=== PATIENT | male | born 1985 | race African-American/Black ===

== ENCOUNTER 2017-01-11 03:57 | Inpatient (IN) | payer SELFPAY ==
[~2017-01-11] VITALS: Ht 175.3 cm; Wt 67.6 kg
[2017-01-11] VITALS (12 sets, daily range): BP systolic 14–149; BP diastolic 52–93
[~2017-01-11 03:57] MED LIST: INSU100C SQ; INSU100I13 SQ; INSU100V13 SQ
[2017-01-11] MEDS ORDERED: ONDANSETRON PF 4 MG/2 ML VIAL. ONE (04:16)
[2017-01-11] MEDS ORDERED: 0.9 % SODIUM CHLORIDE 150ML 150 ML ONE (04:27)
[2017-01-11] MEDS ORDERED: INSULIN REGULAR 100 UNIT/ML 10ML VIAL. ONE (04:27)
[2017-01-11] MEDS ORDERED: ONDANSETRON PF 4 MG/2 ML VIAL. IV ONE (04:30)
[2017-01-11 04:44] LABS: BGAS PH 7.3 (7.35-7.46)
[2017-01-11 04:46] LABS: BASO # 0.1 x10^3/uL (0.0-0.2); BASO % 1 % (0-3); EOS % 0 % (0-3); HEMATOCRIT 51.6 % (39.0-53.0); HEMOGLOBIN 17.6 g/dL (13.0-17.5); LYMPH # 1.9 x10^3/uL (1.0-4.8); LYMPH % 10 % (24-48); MEAN CORPUSCULAR HEMOGLOBIN 32 pg (25-35); MEAN CORPUSCULAR HGB CONC 34 g/dL (31-37); MEAN CORPUSCULAR VOLUME 94 fL (79-100); MONO # 0.7 x10^3/uL (0.0-1.1); MONO % 4 % (0-9); NEUT # 15.9 x10^3uL (1.8-7.7); NEUT % 85 % (31-73); PLATELET COUNT 277 x10^3/uL (140-400); RED CELL DISTRIBUTION WIDTH 13.2 % (11.5-14.5); WHITE BLOOD COUNT 18.6 x10^3/uL (4.0-11.0)
--- NOTE | 2017-01-11 04:51 | PHYS DOC ---
Past History Past Medical History: Diabetes Past Surgical History: No Surgical History Smoking: Less than 1pk/day Alcohol Use: None Drug Use: None Adult General Chief Complaint Chief Complaint: BLOOD SUGAR PROBLEM HPI HPI 31-year-old male patient with history of type 1 diabetes brought in by his sister because of nausea and vomiting and high blood sugar. Patient state he didn't feel good yesterday and did not take his insulin after 2 PM and had more than 10 episodes of nonbloody vomiting with epigastric sharp pain without radiation. Patient complaining of pain in his throat during episodes of vomiting without fever and chills, diarrhea, urinary symptoms, sick contacts. Patient complaining of generalized weakness. Patient is a poor historian because of his medical condition and history is limited. Review of Systems Review of Systems Constitutional: Denies fever or chills [, reports generalized weakness] Eyes: Denies change in visual acuity, redness, or eye pain [] HENT: Denies nasal congestion, reports sore throat [] Respiratory: Denies cough or shortness of breath [] Cardiovascular: No additional information not addressed in HPI [] GI: Reports abdominal pain, nausea, vomiting, denies bloody stools or diarrhea [ ] : Denies dysuria or hematuria [] Musculoskeletal: Denies back pain or joint pain [] Integument: Denies rash or skin lesions [] Neurologic: Denies headache, focal weakness or sensory changes [] Endocrine: Denies polyuria or polydipsia [] All other systems were reviewed and found to be within normal limits, except as documented in this note. Current Medications Current Medications Current Medications Medications (Trade) Dose Ordered Sig/Jeanine Start Time Stop Time Status Last Admin Dose Admin Famotidine (Pepcid Vial) 20 mg 1X ONCE 01/11/17 05:00 01/11/17 05:01 01/11/17 04:31 20 MG Insulin Human Regular (NovoLIN R) 100 unit STK-MED ONCE 01/11/17 04:27 01/11/17 04:28 DC Insulin Human Regular 150 unit/ Sodium Chloride 151.5 ml @ 0 mls/hr 1X ONCE 01/11/17 05:00 01/11/17 05:01 01/11/17 04:50 6 MLS/HR Ondansetron HCl (Zofran) 4 mg 1X ONCE 01/11/17 04:30 01/11/17 04:45 DC 12/7/17 04:30 4 MG Sodium Chloride 150 ml @ As Directed STK-MED ONCE 01/11/17 04:27 01/11/17 04:28 DC Allergies Allergies Allergies Coded Allergies Type Severity Reaction Last Updated Verified No Known Drug Allergies 06/08/14 No Physical Exam Physical Exam Constitutional: Moderate distress, ill looking, non-toxic appearance. [] HENT: Normocephalic, atraumatic, bilateral external ears normal, oropharynx dry , no oral exudates, nose normal. [] Eyes: PERRLA, EOMI, conjunctiva normal, no discharge. [] Neck: Normal range of motion, no tenderness, supple, no stridor. [] Cardiovascular:tachycardia, no murmur [] Lungs & Thorax: Bilateral breath sounds clear to auscultation [] Abdomen: Bowel sounds normal, soft, no tenderness, no masses, no pulsatile masses. [] Skin: Warm, dry, no erythema, no rash. [] Back: No tenderness, no CVA tenderness. [] Extremities: No tenderness, no cyanosis, no clubbing, ROM intact, no edema. [] Neurologic: Alert and oriented X 3, normal motor function, normal sensory function, no focal deficits noted. [] Current Patient Data Vital Signs Vital Signs Date Time Temp Pulse Resp B/P (MAP) Pulse Ox O2 Delivery O2 Flow Rate FiO2 01/11/17 04:00 98.4 124 22 99 Room Air Lab Results Laboratory Tests Test 01/11/17 04:15 01/11/17 04:25 White Blood Count 18.6 x10^3/uL (4.0-11.0) H Red Blood Count 5.50 x10^6/uL (4.30-5.70) Hemoglobin 17.6 g/dL (13.0-17.5) H Hematocrit 51.6 % (39.0-53.0) Mean Corpuscular Volume 94 fL (79-100) Mean Corpuscular Hemoglobin 32 pg (25-35) Mean Corpuscular Hemoglobin Concent 34 g/dL (31-37) Red Cell Distribution Width 13.2 % (11.5-14.5) Platelet Count 277 x10^3/uL (140-400) Neutrophils (%) (Auto) 85 % (31-73) H Lymphocytes (%) (Auto) 10 % (24-48) L Monocytes (%) (Auto) 4 % (0-9) Eosinophils (%) (Auto) 0 % (0-3) Basophils (%) (Auto) 1 % (0-3) Neutrophils # (Auto) 15.9 x10^3uL (1.8-7.7) H Lymphocytes # (Auto) 1.9 x10^3/uL (1.0-4.8) Monocytes # (Auto) 0.7 x10^3/uL (0.0-1.1) Eosinophils # (Auto) 0.0 x10^3/uL (0.0-0.7) Basophils # (Auto) 0.1 x10^3/uL (0.0-0.2) Platelet Estimate Pending Blood pH 7.30 (7.35-7.46) L Blood Gas PCO2 23 mmHg (35-46) L Blood Gas PO2 120 mmHg (80-100) H Blood Gas HCO3 11 mmol/L (21-28) L Arterial Bld O2 Saturation (Calc) 98 % (92-99) FiO2 21 % EKG EKG [] Radiology/Procedures Radiology/Procedures [] Course & Med Decision Making Course & Med Decision Making Pertinent Labs reviewed. (See chart for details) Evaluation of patient in ER showed 31-year-old male patient with history of type 1 diabetes brought in because of nausea and vomiting and elevation of blood sugar. Patient had blood sugar of 475 at arrival to ER dry oral mucosa and tachycardia. ABG showed pH of 7.29 and bicarbonate of 11. 2 L of IV fluid was started in ER and patient had bolus of 10 units Insulin and blood sugar dropped to 370. Insulin drip at rate of 4 units /hour was started and patient rated to hospital to ICU with diagnosis of DKA. Dr. Sargent on-call hospitalist was consulted at 0445 and accepted the admission. Patient and his family informed about plan of care and agreed with hospitalization. [] Dragon Disclaimer Dragon Disclaimer This electronic medical record was generated, in whole or in part, using a voice recognition dictation system. Departure Departure: Impression: Primary Impression: DKA (diabetic ketoacidoses) Additional Impressions: Nausea and vomiting Tobacco abuse Uncontrolled diabetes mellitus Leukocytosis Renal insufficiency Disposition: 09 ADMITTED INPATIENT (At 0445) Admitting Physician: Rafael Sargent Condition: GUARDED Referrals: PCP,NO (PCP) Critical Care Time Critical care time was [60] minutes exclusive of procedures. Problem Qualifiers GOMEZ HOWARD MD Jan 11, 2017 04:51
[2017-01-11 04:57] LABS: ALBUMIN 3.8 g/dL (3.4-5.0); ALBUMIN/GLOBULIN RATIO 0.9 (1.0-1.7); CALCIUM 9.6 mg/dL (8.5-10.1); CREATININE 1.7 mg/dL (0.7-1.3); GFR 57.9; PHOSPHORUS 5.6 mg/dL (2.6-4.7); POTASSIUM 4.3 mmol/L (3.5-5.1); TOTAL BILIRUBIN 0.8 mg/dL (0.2-1.0)
[2017-01-11] MEDS ORDERED: IV NORMAL SALINE 1,000ML 1,000 ML IV ONE ×2 (05:00)
[2017-01-11] MEDS ORDERED: ONDANSETRON PF 4 MG/2 ML VIAL. IV PRN (05:00)
[2017-01-11] MEDS ORDERED: IV NORMAL SALINE 1,000ML 1,000 ML IV SCH (05:00)
[2017-01-11] MEDS ORDERED: FAMOTIDINE 20 MG/2 ML VIAL IVP ONE (05:00)
[2017-01-11] MEDS ORDERED: INSULIN REGULAR 150 UNIT in 0.9 % SODIUM CHLORIDE 150ML 150 ML IV ONE (05:00)
[2017-01-11] MEDS ORDERED: INSULIN REGULAR 150 UNIT in 0.9 % SODIUM CHLORIDE 150ML 150 ML IV PRN (05:00)
[2017-01-11] MEDS ORDERED: INSULIN REGULAR 100 UNIT/ML 10ML VIAL. IV ONE (05:00)
[2017-01-11 05:21] LABS: % BANDS 12 % (0-9); % BASOS 2 % (0-3); % EOS 1 % (0-5); % LYMPHS 11 % (24-48); % MONOS 6 % (0-10); % SEGS 68 % (35-66)
[2017-01-11 05:22] LABS: PLT ESTIMATE ADEQUATE (ADEQUATE)
[2017-01-11 05:23] LABS: TOXIC GRANULATION MOD; TOXIC VACUOLATION SLIGHT
[2017-01-11 06:42] LABS: BILIRUBIN,URINE NEG (NEG); CLARITY,URINE CLEAR; COLOR,URINE STRAW; GLUCOSE,URINE 500 mg/dL (NEG); NITRITE,URINE NEG (NEG); UROBILINOGEN,URINE 0.2 mg/dL (0.2 mg/dL)
[2017-01-11 06:45] LABS: BARBITURATES NEG (NEG); BENZODIAZEPINES NEG (NEG); CANNABINOIDS NEG (NEG); COCAINE POS (NEG); METHADONE NEG (NEG); OPIATES NEG (NEG); PHENCYCLIDINE NEG (NEG)
[2017-01-11 06:48] LABS: RBC,URINE OCC /HPF (0-2)
[2017-01-11 06:49] LABS: BACTERIA,URINE FEW /HPF (0-FEW); WBC,URINE OCC /HPF (0-4)
[2017-01-11 06:50] LABS: AMPHETAMINE/METHAMPHETAMINE NEG (NEG)
[2017-01-11] MEDS ORDERED: KETOROLAC 30 MG/ML VIAL. IV PRN (08:30)
[2017-01-11] MEDS ORDERED: ACETAMINOPHEN 325 MG TABLET PO PRN (08:30)
[2017-01-11] MEDS ORDERED: PROMETHAZINE 25 MG in IV NORMAL SALINE 50ML 50 ML IV PRN (09:00)
[2017-01-11] MEDS: IV NORMAL SALINE 1,000ML 1,000 ML IV SCH ×3 (10:12→12:30)
[2017-01-11] MEDS ORDERED: METOCLOPRAMIDE HCL 10 MG/2 ML VIAL. IV PRN (11:00)
[2017-01-11 11:34] LABS: INFLUENZA A PATIENT NEGATIVE (NEGATIVE); INFLUENZA B PATIENT NEGATIVE (NEGATIVE)
[2017-01-11] MEDS ORDERED: POTASSIUM CHLORIDE 10 MEQ IV ONE (12:06)
--- NOTE | 2017-01-11 12:20 | HP ---
ADMIT DATE: 01/11/2017 HISTORY OF PRESENT ILLNESS: The patient is a 31-year-old -[place] male patient with a past medical history of type 1 diabetes mellitus, was brought by his sister to the Emergency Room because of recurrent bouts of nausea and vomiting and high blood sugar. The patient stated that he did not feel good yesterday, did not take any of his insulin after 2 p.m. and had more than 10 episodes of nonbloody vomiting and epigastric sharp pain without radiation. He also complained of pain in his throat during these episodes of vomiting without fever or chills. Did complain of generalized weakness and was evaluated in the Emergency Room, was found to have leukocytosis with a white cell count 18,600. His chemistry showed that his anion gap was 29. His BUN was 21, creatinine 1.7. His blood sugar was high at 491 mg/dL and he was admitted with DKA, started on IV fluid and insulin drip, although initially, apparently the ER physician did not start him on drip and gave him only 10 units of insulin. PAST MEDICAL HISTORY: Significant for type 1 diabetes mellitus, on insulin. He is apparently on sliding scale insulin. PAST SURGICAL HISTORY: Unremarkable. ALLERGIES: He has no known drug allergies. FAMILY HISTORY: Unobtainable. The patient is very lethargic and difficult to get any information from him. SOCIAL HISTORY: He apparently lives with his sister. He does smoke. Claims that he does not drink alcohol. Stated that he does not use any drugs; however, his urine toxicology screen was positive for cocaine. He is single, but he claims that he has 4 children. REVIEW OF SYSTEMS: Unobtainable. PHYSICAL EXAMINATION: GENERAL: The patient is very sleepy when I examined him. On arrival to the ICU, he was pale, but not jaundiced, cyanosis, or thyromegaly. No jugular venous distension. No limb edema. VITAL SIGNS: His heart rate was 133, blood pressure was 126/76, temperature was 98.4, respiratory rate was 18 and oxygen saturation was 97% on room air. HEAD, EYES, EARS, NOSE, AND THROAT: Showed normocephalic, atraumatic. NECK: Supple. HEART: Showed normal first and second heart sounds. No gallop, rub or murmur. CHEST: Clear to auscultation. No crepitation or rhonchi. ABDOMEN: Slightly distended, soft, nontender. No guarding or rigidity. No organomegaly. Hernial orifice intact. Bowel sounds normal. NEUROLOGIC: He was sleepy but arousable. All his cranial nerves are intact. EXTREMITIES: He moves extremities without difficulty. LABORATORY DATA: On arrival showed a serum sodium 136, potassium 4.3, chloride 94, bicarbonate 13, anion gap of 29, BUN 21, creatinine 1.7, estimated GFR was 58 mL per minute. His glucose was 491, calcium was 9.6, phosphorus was 5.6, magnesium was 2. Total bilirubin, AST, ALT, alkaline phosphatase were normal. His total protein was 8, albumin was 3.8 and lipase was 74. His white cell count was 18,600, hemoglobin 17.6, hematocrit 51.6, MCV 94 and platelet count of 277,000 with a normal manual differential. His blood gases showed a pH of 7.30, pCO2 of 23, a pO2 of 120, bicarbonate was 11, and oxygen saturation was 98% on room air. His urinalysis showed the urine was clear with a pH of 5.5, specific gravity 1.020 was a trace of protein, large amount of glucose, large amount of ketones, small amount of blood, negative for nitrite and leukocyte esterase. There are no RBCs, no WBCs and very few bacteria. His urine toxicology screen was positive for cocaine and was negative for opiates, methadone, barbiturates, phencyclidine, amphetamine, methamphetamine, benzodiazepine, cannabinoids, methyl alcohol. Apparently has had a group A streptococcus, was negative but he did complain of sore throat. ASSESSMENT AND PLAN: In summary, this is a 31-year-old -[place] male patient known to have type 1 diabetes, insulin-dependent, here with diabetic ketoacidosis. We will continue with IV fluid, continue with the insulin drip. Continue with antiemetic and pain management. We will repeat his lab works including blood gases and BMP this afternoon and will decide the further management accordingly. If has no further episodes of nausea or vomiting, we can start him on a clear liquid diet. DEMETRIUS BAIN MD DR: JH/moses JOB#: [id number] / [id number]
[2017-01-11] MEDS: POTASSIUM CHLORIDE 40 MEQ in IV DEXTROSE 5 %-0.45 % NACL 1,000 ML IV SCH ×3 (12:33→19:41)
[2017-01-11 13:17] LABS: BGAS PH 7.3 (7.35-7.46)
[2017-01-11 13:23] LABS: ALBUMIN 2.9 g/dL (3.4-5.0); ALBUMIN/GLOBULIN RATIO 0.8 (1.0-1.7); CALCIUM 8.1 mg/dL (8.5-10.1); CREATININE 1.4 mg/dL (0.7-1.3); GFR 72.5; MAGNESIUM 1.8 mg/dL (1.8-2.4); POTASSIUM 4.3 mmol/L (3.5-5.1); TOTAL BILIRUBIN 0.5 mg/dL (0.2-1.0); TOTAL PROTEIN 6.5 g/dL (6.4-8.2)
--- NOTE | 2017-01-11 14:22 | RAD ---
AP chest, 01/11/2017: History: Leukocytosis The heart size and pulmonary vascularity are normal. The lungs are clear. There is no evidence of pleural fluid. IMPRESSION: No acute cardiopulmonary abnormality is detected.
[2017-01-11] MEDS ORDERED: INSU100V31 SQ (18:22)
[2017-01-11 21:13] LABS: CALCIUM 8.4 mg/dL (8.5-10.1); CREATININE 1.3 mg/dL (0.7-1.3); POTASSIUM 4.1 mmol/L (3.5-5.1)
[2017-01-12] VITALS (17 sets, daily range): BP systolic 109–168; BP diastolic 58–92
[2017-01-12] MEDS: POTASSIUM CHLORIDE 40 MEQ in IV DEXTROSE 5 %-0.45 % NACL 1,000 ML IV SCH ×3 (01:51→13:40)
[2017-01-12 06:36] LABS: HEMATOCRIT 41.6 % (39.0-53.0); HEMOGLOBIN 14.6 g/dL (13.0-17.5); RED BLOOD COUNT 4.55 x10^6/uL (4.30-5.70); RED CELL DISTRIBUTION WIDTH 13.1 % (11.5-14.5); WHITE BLOOD COUNT 14.5 x10^3/uL (4.0-11.0)
[2017-01-12 06:39] LABS: ALBUMIN 2.8 g/dL (3.4-5.0); ALBUMIN/GLOBULIN RATIO 0.8 (1.0-1.7); CALCIUM 8.7 mg/dL (8.5-10.1); CREATININE 1.1 mg/dL (0.7-1.3); GFR 95.8; POTASSIUM 4.1 mmol/L (3.5-5.1); TOTAL BILIRUBIN 0.5 mg/dL (0.2-1.0); TOTAL PROTEIN 6.5 g/dL (6.4-8.2)
[2017-01-12] MEDS ORDERED: DEXTROSE 50% 25 GM / 50ML DISP.SYRIN. IV PRN (10:00)
[2017-01-12] MEDS: INSULIN ASPART 300 UNITS/3 ML INSULN.PEN SQ SCH ×2 (11:30→14:30)
[2017-01-12] MEDS ORDERED: BENZOCAINE/MENTHOL LOZNGE 18'S BOX. PO PRN (16:00)
--- NOTE | 2017-01-12 23:42 | DS ---
DATE OF DISCHARGE: 01/12/2017 HISTORY OF PRESENT ILLNESS AND HOSPITAL COURSE: The patient is a 31-year-old male patient known to have type 1 diabetes, who came with complaining of a sore throat, recurrent bouts of nausea, vomiting and high blood sugar. He stated he has not felt good, not taken insulin, and had more than 10 episodes of nonbloody vomiting and epigastric sharp pain without radiation. Also, complained of pain in his throat during these episodes of vomiting without fever or chills. He did complain also generalized weakness and was evaluated in the Emergency Room, was found to have leukocytosis with a white cell count of 18,600. His chemistry showed a high anion gap, metabolic acidosis, BUN 21, creatinine 1.7. His blood sugar was 491 and was admitted with a diagnosis of diabetic ketoacidosis, started on IV fluid and insulin drip. He did very well. We did extensive investigation including his influenza A and B, and group A streptococcus rapid testing was negative. His nasal screen for MRSA PCR was negative. Urinalysis was unremarkable except for large amount of glucose and ketones. Toxic screen showed it was positive for cocaine. His chemistry showed that his lab work has dramatically improved. His creatinine came down from 1.7 to 1.1. His blood sugar is well controlled. A decision was made to discharge him home to continue on his home insulin regimen. FINAL DISCHARGE DIAGNOSES: 1. Type 1 diabetes mellitus. 2. Diabetic ketoacidosis. 3. Cocaine abuse. 4. Acute kidney injury, resolving. DEMETRIUS BAIN MD DR: JH/moses JOB#: [id number] / [id number]
--- NOTE | 2017-01-13 06:22 | PN ---
DATE: 01/12/2017 SUBJECTIVE: The patient is resting slightly propped up in bed, in no apparent distress, is definitely more awake, alert, has eaten his breakfast and lunch today, although continued to complain of sore throat. When I examined him, he looked well and was clearly in no apparent respiratory distress. No pallor, jaundice, cyanosis, or thyromegaly. No jugular venous distension. No lower limb edema. OBJECTIVE: VITAL SIGNS: His heart rate was 114, blood pressure was 114/69, temperature was 97.8, respiratory rate was 20, and oxygen saturation was 98%. HEAD, EYES, EARS, NOSE AND THROAT: Normocephalic, atraumatic. NECK: Supple. HEART: Showed normal first and second sounds. No gallop, rub or murmur. CHEST: Clear to auscultation. No crepitation or rhonchi. ABDOMEN: Distended, soft, nontender. No guarding or rigidity. No organomegaly. Hernial orifice intact. Bowel sounds normal. NEUROLOGIC: He was awake, alert, responding appropriately. Cranial nerves intact. He moves extremities without difficulty, ambulates without assistance or assistive devices. His intake was 4210, output was 1250. LABORATORY DATA: Showed a white cell count is down to 14,500, hemoglobin 14.6, hematocrit 41.6, MCV 92, and platelet count 208,000. His serum sodium was 139, potassium 4.1, chloride 107, bicarbonate 23, and anion gap of 9. BUN 9, creatinine 1.1. His glucose 153, calcium was 8.7. Total bilirubin, AST, ALT, alkaline phosphatase were normal. Total protein 6.5, albumin 2.8. His toxicology screen was positive for cocaine. His influenza A and B were negative. Rapid group A streptococcus test was negative. Nasal screen for MRSA by PCR was negative. ASSESSMENT: 1. Type 1 diabetes mellitus, insulin-dependent. 2. Diabetic ketoacidosis. 3. Intractable nausea and vomiting, improving. PLAN: To switch him to insulin sliding scale. Continue with IV fluid. He remained stable. He can be discharged home tomorrow. DEMETRIUS BAIN MD DR: JH/moses JOB#: [id number] / [id number]
== END 2017-01-12 18:45 | disposition home or self-care (01) | DRG 638 ==
LOC: ER 03:57 → ICU 04:45
PROVIDERS: ADMIT Internal Medicine; ATTEND Internal Medicine
DX: E10.10 Type 1 diabetes mellitus with ketoacidosis without coma (principal); N17.9 Acute kidney failure, unspecified; F17.210 Nicotine dependence, cigarettes, uncomplicated; D72.829 Elevated white blood cell count, unspecified; F14.10 Cocaine abuse, uncomplicated; Z79.4 Long term (current) use of insulin
CPT/HCPCS: 36415; 36600; 71010; 80048; 80053; 80307; 81001; 82010; 82550; 82803; 82947; 83690; 83735; 84100; 84484; 85007; 85025; 85027; 87070; 87641; 87804; 87880; 96365; 96375; J1815; J1885; J2405; J2550; J3480; S0028; 99291-25; G0479; J7030

== ENCOUNTER 2017-01-13 15:43 | Emergency (ER) | payer SELFPAY ==
[~2017-01-13] VITALS: Ht 327.7 cm; Wt 66.2 kg
[~2017-01-13 15:43] MED LIST changes: +INSU100V31 SQ
[2017-01-13 15:58] VITALS: BP 128/75
[2017-01-13 16:32] LABS: BASO # 0.1 x10^3/uL (0.0-0.2); BASO % 1 % (0-3); EOS % 0 % (0-3); HEMATOCRIT 45.9 % (39.0-53.0); HEMOGLOBIN 15.8 g/dL (13.0-17.5); LYMPH # 1.7 x10^3/uL (1.0-4.8); LYMPH % 18 % (24-48); MEAN CORPUSCULAR HEMOGLOBIN 32 pg (25-35); MEAN CORPUSCULAR HGB CONC 34 g/dL (31-37); MEAN CORPUSCULAR VOLUME 94 fL (79-100); MONO # 0.6 x10^3/uL (0.0-1.1); MONO % 6 % (0-9); NEUT # 6.8 x10^3uL (1.8-7.7); NEUT % 75 % (31-73); PLATELET COUNT 237 x10^3/uL (140-400); RED BLOOD COUNT 4.89 x10^6/uL (4.30-5.70); RED CELL DISTRIBUTION WIDTH 13.3 % (11.5-14.5); WHITE BLOOD COUNT 9.1 x10^3/uL (4.0-11.0)
[2017-01-13 16:36] LABS: ALBUMIN 3.4 g/dL (3.4-5.0); ALBUMIN/GLOBULIN RATIO 0.8 (1.0-1.7); CALCIUM 9.5 mg/dL (8.5-10.1); CREATININE 1.4 mg/dL (0.7-1.3); GFR 72.5; MAGNESIUM 1.9 mg/dL (1.8-2.4); POTASSIUM 4.9 mmol/L (3.5-5.1); TOTAL BILIRUBIN 0.8 mg/dL (0.2-1.0); TOTAL PROTEIN 7.7 g/dL (6.4-8.2)
--- NOTE | 2017-01-13 17:03 | EKG ---
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
--- NOTE | 2017-01-13 17:27 | PHYS DOC ---
Past History Past Medical History: Diabetes Past Surgical History: No Surgical History Smoking: Less than 1pk/day Alcohol Use: None Drug Use: Cocaine, Marijuana Adult General Chief Complaint Chief Complaint: NAUSEA/VOMITING/DIARRHEA HPI HPI Patient is a 31 year old M who presents with nausea, vomiting and diarrhea over the past 2 days. Aixa was admitted to the hospital and discharged 2 days ago for DKA. After he was discharged to [facility]. He did take his insulin prior. Thereafter he developed worsening nausea and vomiting. He is not taken his insulin since that time. He did not take his long-acting insulin last night and has not taken any short acting since his last meal. He has not checked his sugar during this time. He states that these symptoms feel similar to his previous DKA. Review of Systems Review of Systems Constitutional: Denies fever or chills [] Eyes: Denies change in visual acuity, redness, or eye pain [] HENT: Denies nasal congestion or sore throat [] Respiratory: Denies cough or shortness of breath [] Cardiovascular: No additional information not addressed in HPI [] GI: Negative except history of present illness : Denies dysuria or hematuria [] Musculoskeletal: Denies back pain or joint pain [] Integument: Denies rash or skin lesions [] Neurologic: Denies headache, focal weakness or sensory changes [] Endocrine: Denies polyuria or polydipsia [] All other systems were reviewed and found to be within normal limits, except as documented in this note. Family History Family History No pertinent family history reported Current Medications Current Medications Current medications were reviewed Current Medications Medications (Trade) Dose Ordered Sig/[facility] Start Time Stop Time Status Last Admin Dose Admin Insulin Human Regular (NovoLIN R) 10 unit 1X ONCE 01/13/17 17:30 01/13/17 17:31 Sodium Chloride 1,000 ml @ 1,000 mls/hr 1X ONCE 01/13/17 17:30 01/13/17 18:29 UNV Allergies Allergies No known allergies Allergies Coded Allergies Type Severity Reaction Last Updated Verified No Known Drug Allergies 06/08/14 No Physical Exam Physical Exam Constitutional: Well developed, well nourished, mild distress noted, ill appearing HENT: Normocephalic, atraumatic, bilateral external ears normal, no oral exudates, nose normal. [] Dry mucous membranes Eyes: PERRLA, EOMI, conjunctiva normal, no discharge. [] Neck: Normal range of motion, no tenderness, supple, no stridor. [] Cardiovascular:Heart rate regular rhythm, Lungs & Thorax: Bilateral breath sounds clear to auscultation [] Abdomen: Bowel sounds normal, soft, no masses, no pulsatile masses. [] Mild nonfocal tenderness to palpation Skin: Warm, dry, no erythema, no rash. [] Back: No tenderness, no CVA tenderness. [] Extremities: No tenderness, no cyanosis, no clubbing, ROM intact, no edema. [] Neurologic: Alert and oriented X 3, normal motor function, normal sensory function, no focal deficits noted. [] Psychologic: Affect normal, judgement normal, mood normal. [] Current Patient Data Vital Signs Vital Signs Date Time Temp Pulse Resp B/P (MAP) Pulse Ox O2 Delivery O2 Flow Rate FiO2 01/13/17 15:58 98.1 109 16 98 Room Air Lab Results Laboratory Tests Test 01/13/17 15:52 01/13/17 16:04 Glucose (Fingerstick) 314 mg/dL (70-99) H White Blood Count 9.1 x10^3/uL (4.0-11.0) Red Blood Count 4.89 x10^6/uL (4.30-5.70) Hemoglobin 15.8 g/dL (13.0-17.5) Hematocrit 45.9 % (39.0-53.0) Mean Corpuscular Volume 94 fL (79-100) Mean Corpuscular Hemoglobin 32 pg (25-35) Mean Corpuscular Hemoglobin Concent 34 g/dL (31-37) Red Cell Distribution Width 13.3 % (11.5-14.5) Platelet Count 237 x10^3/uL (140-400) Neutrophils (%) (Auto) 75 % (31-73) H Lymphocytes (%) (Auto) 18 % (24-48) L Monocytes (%) (Auto) 6 % (0-9) Eosinophils (%) (Auto) 0 % (0-3) Basophils (%) (Auto) 1 % (0-3) Neutrophils # (Auto) 6.8 x10^3uL (1.8-7.7) Lymphocytes # (Auto) 1.7 x10^3/uL (1.0-4.8) Monocytes # (Auto) 0.6 x10^3/uL (0.0-1.1) Eosinophils # (Auto) 0.0 x10^3/uL (0.0-0.7) Basophils # (Auto) 0.1 x10^3/uL (0.0-0.2) Sodium Level 135 mmol/L (136-145) L Potassium Level 4.9 mmol/L (3.5-5.1) Chloride Level 95 mmol/L (98-107) L Carbon Dioxide Level 15 mmol/L (21-32) L Anion Gap 25 (6-14) H Blood Urea Nitrogen 15 mg/dL (8-26) Creatinine 1.4 mg/dL (0.7-1.3) H Estimated GFR (Cockcroft-Gault) 72.5 BUN/Creatinine Ratio 11 (6-20) Glucose Level 335 mg/dL (70-99) H Calcium Level 9.5 mg/dL (8.5-10.1) Magnesium Level 1.9 mg/dL (1.8-2.4) Total Bilirubin 0.8 mg/dL (0.2-1.0) Aspartate Amino Transferase (AST) 12 U/L (15-37) L Alanine Aminotransferase (ALT) 17 U/L (16-63) Alkaline Phosphatase 84 U/L (46-116) Total Protein 7.7 g/dL (6.4-8.2) Albumin 3.4 g/dL (3.4-5.0) Albumin/Globulin Ratio 0.8 (1.0-1.7) L EKG EKG [] Radiology/Procedures Radiology/Procedures [] Course & Med Decision Making Course & Med Decision Making Pertinent Labs and Imaging studies reviewed. (See chart for details) Aixa was strongly advised to be admitted to the hospital for diabetic ketoacidosis. He was explained the risks associated with DKA include but are not limited to coma, , permanent disability and irreversible brain damage. He verbalized understanding and declined admission. He was accompanied by his girlfriend who also encouraged him to stay in the hospital. Multiple attempts were made attempting to encourage him to stay in the hospital. Dragon Disclaimer Dragon Disclaimer This electronic medical record was generated, in whole or in part, using a voice recognition dictation system. Departure Departure: Impression: Primary Impression: Diabetic ketoacidosis Disposition: 07 AGAINST MEDICAL ADVICE Condition: CRITICAL Referrals: PCP,NO (PCP) Problem Qualifiers Primary Impression: Diabetic ketoacidosis Diabetes mellitus type: other specified (including AMINAH) Diabetes mellitus complication detail: without coma Qualified Codes: E13.10 - Other specified diabetes mellitus with ketoacidosis without coma DORON MCLAUGHLIN MD Jan 13, 2017 17:27
[2017-01-13] MEDS ORDERED: IV NORMAL SALINE 1,000ML 1,000 ML IV ONE (17:30)
[2017-01-13] MEDS ORDERED: INSULIN REGULAR 100 UNIT/ML 10ML VIAL. IV ONE (17:30)
[2017-01-13] MEDS ORDERED: INSULIN REGULAR 150 UNIT in 0.9 % SODIUM CHLORIDE 150ML 150 ML IV ONE (17:30)
== END 2017-01-13 19:00 | disposition left against medical advice (07) ==
LOC: ER 15:43
DX: E11.10 Type 2 diabetes mellitus with ketoacidosis without coma (principal); Z79.4 Long term (current) use of insulin; F12.10 Cannabis abuse, uncomplicated; F14.10 Cocaine abuse, uncomplicated; F17.200 Nicotine dependence, unspecified, uncomplicated
CPT/HCPCS: 36415; 80053; 82947; 83735; 85025; 93005; 96360; 99285-25; J7030

== ENCOUNTER 2018-06-01 19:50 | Emergency (ER) | payer SELFPAY ==
[~2018-06-01] VITALS: Ht 175.3 cm; Wt 80.3 kg
--- NOTE | 2018-06-01 20:12 | ED.ADGEN ---
Past History Past Medical History: Diabetes Past Surgical History: No Surgical History Smoking: Cigarettes, Less than 1pk/day Alcohol Use: None Drug Use: Cocaine, Marijuana Adult General Chief Complaint Chief Complaint ".. I think I am in DKA again... my sugar at home was 529.. # .. I ve been Diabetic since age 17... ".. Now I vomiting.. and got abdomen pain..." Pt. " He gets bad about once a year.. and ends up admitted with DKA...." Mother HPI HPI Patient is a 32 year old male who presents with Nausea, Vomiting, Abd. Pain and Elevated Glucose. Pt. states he has not felt well for the past week. Sugars 120 to 500's no stability. No bad food, ill contacts, travel or change is his diabetic meds. No history immunosuppression. No history of IV drug use. Pt. did not get a flu vaccination this season. Patient does smoke tobacco. Patient normally follows with Dr. Jean Baptiste. Review of Systems Review of Systems Constitutional: Denies fever or chills [] Eyes: Denies change in visual acuity, redness, or eye pain [] HENT: Denies nasal congestion or sore throat [] Respiratory: Denies cough or shortness of breath [] Cardiovascular: No additional information not addressed in HPI [] GI: Complains of generalized abdominal pain, nausea, vomiting. No history, bloody stools or diarrhea [] : Denies dysuria or hematuria [] Musculoskeletal: Denies back pain or joint pain [] Integument: Denies rash or skin lesions [] Neurologic: Denies headache, focal weakness or sensory changes [] Endocrine: Has polyuria or polydipsia [] All other systems were reviewed and found to be within normal limits, except as documented in this note. Family History Family History Grandfather had diabetes Current Medications Current Medications Current Medications Medications (Trade) Dose Ordered Sig/Jeanine Start Time Stop Time Status Last Admin Dose Admin Famotidine (Pepcid Vial) 20 mg 1X ONCE 06/01/18 20:30 06/01/18 20:31 DC 06/01/18 20:37 20 MG Insulin Human Regular (HumuLIN R VIAL) 10 unit 1X ONCE 06/01/18 22:00 06/01/18 22:01 DC 06/01/18 22:05 10 UNIT Ketorolac Tromethamine (Toradol 15mg Vial) 15 mg 1X ONCE 06/01/18 20:30 06/01/18 20:31 DC 06/01/18 20:38 15 MG Lactated Ringer's 1,000 ml @ 1,000 mls/hr 1X ONCE 06/01/18 22:00 06/01/18 22:59 DC 06/01/18 22:03 1,000 MLS/HR Ondansetron HCl (Zofran) 8 mg 1X ONCE 06/01/18 20:30 06/01/18 20:31 DC 06/01/18 20:37 8 MG Sodium Chloride 1,000 ml @ 1,000 mls/hr Q1H 06/01/18 20:30 06/01/18 21:29 DC 06/01/18 20:38 1,000 MLS/HR Allergies Allergies Allergies Coded Allergies Type Severity Reaction Last Updated Verified No Known Drug Allergies 06/01/18 No Physical Exam Physical Exam Constitutional: in acute distress,ill in appearance. [] HENT: Normocephalic, atraumatic, bilateral external ears normal, oropharynx very dry, no oral exudates, nose normal. [] Eyes: PERRLA, EOMI, conjunctiva normal, no discharge. [] Neck: Normal range of motion, no tenderness, supple, no stridor. [] Cardiovascular: Tachycardia Heart rate regular rhythm, no murmur [] Lungs & Thorax: Bilateral breath sounds equal at apexes with basilar wheezes auscultation [] Abdomen: Bowel sounds decreased, soft, generalized abdomen tenderness, no masses, no pulsatile masses. [] Skin: Warm, dry, no erythema, no rash. Multiple tattoos Back: No tenderness, no CVA tenderness. [] Extremities: No tenderness, no cyanosis, no clubbing, ROM intact, no edema. [] Neurologic: Alert and oriented X 3, normal motor function, normal sensory function, no focal deficits noted. [] Psychologic: Affect anxious, judgement normal, mood depressed Current Patient Data Vital Signs Vital Signs Date Time Temp Pulse Resp B/P (MAP) Pulse Ox O2 Delivery O2 Flow Rate FiO2 06/01/18 23:00 97.9 110 20 114/70 (85) 100 Room Air Lab Results Laboratory Tests Test 06/01/18 20:10 06/01/18 20:12 06/01/18 20:45 06/01/18 21:30 White Blood Count 7.2 x10^3/uL (4.0-11.0) Red Blood Count 4.77 x10^6/uL (4.30-5.70) Hemoglobin 15.1 g/dL (13.0-17.5) Hematocrit 43.3 % (39.0-53.0) Mean Corpuscular Volume 91 fL (79-100) Mean Corpuscular Hemoglobin 32 pg (25-35) Mean Corpuscular Hemoglobin Concent 35 g/dL (31-37) Red Cell Distribution Width 13.5 % (11.5-14.5) Platelet Count 214 x10^3/uL (140-400) Neutrophils (%) (Auto) 55 % (31-73) Lymphocytes (%) (Auto) 32 % (24-48) Monocytes (%) (Auto) 7 % (0-9) Eosinophils (%) (Auto) 5 % (0-3) H Basophils (%) (Auto) 1 % (0-3) Neutrophils # (Auto) 4.0 x10^3uL (1.8-7.7) Lymphocytes # (Auto) 2.3 x10^3/uL (1.0-4.8) Monocytes # (Auto) 0.5 x10^3/uL (0.0-1.1) Eosinophils # (Auto) 0.3 x10^3/uL (0.0-0.7) Basophils # (Auto) 0.1 x10^3/uL (0.0-0.2) Prothrombin Time 9.7 SEC (9.4-11.4) Prothrombin Time INR 1.0 (0.9-1.1) PTT 22 SEC (23-33) L Sodium Level 134 mmol/L (136-145) L Potassium Level 3.7 mmol/L (3.5-5.1) Chloride Level 97 mmol/L (98-107) L Carbon Dioxide Level 27 mmol/L (21-32) Anion Gap 10 (6-14) Blood Urea Nitrogen 17 mg/dL (8-26) Creatinine 1.7 mg/dL (0.7-1.3) H Estimated GFR (Cockcroft-Gault) 57.5 Glucose Level 357 mg/dL (70-99) H Calcium Level 9.3 mg/dL (8.5-10.1) Magnesium Level 2.1 mg/dL (1.8-2.4) Total Bilirubin 0.5 mg/dL (0.2-1.0) Direct Bilirubin 0.1 mg/dL (0.0-0.2) Aspartate Amino Transferase (AST) 11 U/L (15-37) L Alanine Aminotransferase (ALT) 14 U/L (16-63) L Alkaline Phosphatase 75 U/L (46-116) Creatine Kinase 95 U/L (39-308) Troponin I Quantitative < 0.017 ng/mL (0-0.055) DS-Qur-K-Type Natriuretic Peptide 30 pg/mL (0-124) Total Protein 7.8 g/dL (6.4-8.2) Albumin 3.7 g/dL (3.4-5.0) Amylase Level 51 U/L (25-115) Lipase 47 U/L (73-393) L Urine Opiates Screen Neg (NEG) Urine Methadone Screen Neg (NEG) Urine Barbiturates Neg (NEG) Urine Phencyclidine Screen Neg (NEG) Urine Amphetamine/Methamphetamine Neg (NEG) Urine Benzodiazepines Screen Neg (NEG) Urine Cocaine Screen Pos (NEG) Urine Cannabinoids Screen Pos (NEG) Urine Ethyl Alcohol Neg (NEG) Glucose (Fingerstick) 371 mg/dL (70-99) H Blood pH 7.38 (7.35-7.46) Blood Gas PCO2 42 mmHg (35-46) Blood Gas PO2 88 mmHg (80-100) Blood Gas HCO3 25 mmol/L (21-28) Arterial Bld O2 Saturation (Calc) 96 % (92-99) FiO2 21 % Urine Collection Type Unknown Urine Color Yellow Urine Clarity Clear Urine pH 5.5 Urine Specific [place] 1.010 Urine Protein 100 mg/dl (NEG-TRACE) Urine Glucose (UA) >=1000 mg/dL (NEG) Urine Ketones (Stick) 40 mg/dL (NEG) Urine Blood Trace (NEG) Urine Nitrite Neg (NEG) Urine Bilirubin Neg (NEG) Urine Urobilinogen Dipstick 0.2 mg/dL (0.2 mg/dL) Urine Leukocyte Esterase Neg (NEG) Urine RBC Occ /HPF (0-2) Urine WBC 1-4 /HPF (0-4) Urine Squamous Epithelial Cells Occ /LPF Urine Bacteria 0 /HPF (0-FEW) Urine Hyaline Casts Occ /HPF Urine Mucus Slight /LPF Test 06/01/18 22:09 Glucose (Fingerstick) 234 mg/dL (70-99) H EKG EKG I interpretation of EKG shows a sinus tachycardia heart and 113 bpm. No findings of acute STEMI of contralateral changes[] Radiology/Procedures Radiology/Procedures My interpretation acute abdomen film shows no large cardio pulmonary infiltrate or acute findings. No free air under the diaphragm. Nonspecific bowel gas pattern.[] Course & Med Decision Making Course & Med Decision Making Pertinent Labs and Imaging studies reviewed. (See chart for details) At time discharge pt. symptoms had resolved and stated he felt much better. Continue insulin meds previous directed. Patient encouraged to maintain a re gular diet and medication schedule. Patient push fluids. Patient encouraged to stop smoking. Patient encouraged to stop illicit drugs of marijuana and cocaine. Patient to follow-up with primary care. Patient return if any concerns. [] Final Impression Final Impression 1. DM[]-hyperglycemia 2. Nausea and vomiting 3. Tobacco, marijuana, and cocaine use 4. Elevated creatinine 1.7 5. Volume contracted Dragon Disclaimer Dragon Disclaimer This electronic medical record was generated, in whole or in part, using a voice recognition dictation system. Discharge Summary Brief Hospital Course Allergies Allergies Coded Allergies Type Severity Reaction Last Updated Verified No Known Drug Allergies 06/01/18 No Vital Signs Vital Signs Date Time Temp Pulse Resp B/P (MAP) Pulse Ox O2 Delivery O2 Flow Rate FiO2 06/01/18 23:00 97.9 110 20 114/70 (85) 100 Room Air Lab Results Laboratory Tests Test 06/01/18 20:10 06/01/18 20:12 06/01/18 20:45 06/01/18 21:30 White Blood Count 7.2 x10^3/uL (4.0-11.0) Red Blood Count 4.77 x10^6/uL (4.30-5.70) Hemoglobin 15.1 g/dL (13.0-17.5) Hematocrit 43.3 % (39.0-53.0) Mean Corpuscular Volume 91 fL (79-100) Mean Corpuscular Hemoglobin 32 pg (25-35) Mean Corpuscular Hemoglobin Concent 35 g/dL (31-37) Red Cell Distribution Width 13.5 % (11.5-14.5) Platelet Count 214 x10^3/uL (140-400) Neutrophils (%) (Auto) 55 % (31-73) Lymphocytes (%) (Auto) 32 % (24-48) Monocytes (%) (Auto) 7 % (0-9) Eosinophils (%) (Auto) 5 % (0-3) Basophils (%) (Auto) 1 % (0-3) Neutrophils # (Auto) 4.0 x10^3uL (1.8-7.7) Lymphocytes # (Auto) 2.3 x10^3/uL (1.0-4.8) Monocytes # (Auto) 0.5 x10^3/uL (0.0-1.1) Eosinophils # (Auto) 0.3 x10^3/uL (0.0-0.7) Basophils # (Auto) 0.1 x10^3/uL (0.0-0.2) Prothrombin Time 9.7 SEC (9.4-11.4) Prothromb Time International Ratio 1.0 (0.9-1.1) Activated Partial Thromboplast Time 22 SEC (23-33) Sodium Level 134 mmol/L (136-145) Potassium Level 3.7 mmol/L (3.5-5.1) Chloride Level 97 mmol/L (98-107) Carbon Dioxide Level 27 mmol/L (21-32) Anion Gap 10 (6-14) Blood Urea Nitrogen 17 mg/dL (8-26) Creatinine 1.7 mg/dL (0.7-1.3) Estimated GFR (Cockcroft-Gault) 57.5 Glucose Level 357 mg/dL (70-99) Calcium Level 9.3 mg/dL (8.5-10.1) Magnesium Level 2.1 mg/dL (1.8-2.4) Total Bilirubin 0.5 mg/dL (0.2-1.0) Direct Bilirubin 0.1 mg/dL (0.0-0.2) Aspartate Amino Transf (AST/SGOT) 11 U/L (15-37) Alanine Aminotransferase (ALT/SGPT) 14 U/L (16-63) Alkaline Phosphatase 75 U/L (46-116) Creatine Kinase 95 U/L (39-308) Troponin I Quantitative < 0.017 ng/mL (0-0.055) HH-[id number]-Type Natriuretic Peptide 30 pg/mL (0-124) Total Protein 7.8 g/dL (6.4-8.2) Albumin 3.7 g/dL (3.4-5.0) Amylase Level 51 U/L (25-115) Lipase 47 U/L (73-393) Urine Opiates Screen Neg (NEG) Urine Methadone Screen Neg (NEG) Urine Barbiturates Neg (NEG) Urine Phencyclidine Screen Neg (NEG) Urine Amphetamine/Methamphetamine Neg (NEG) Urine Benzodiazepines Screen Neg (NEG) Urine Cocaine Screen Pos (NEG) Urine Cannabinoids Screen Pos (NEG) Urine Ethyl Alcohol Neg (NEG) Glucose (Fingerstick) 371 mg/dL (70-99) Blood Gas pH 7.38 (7.35-7.46) Blood Gas PCO2 42 mmHg (35-46) Blood Gas PO2 88 mmHg (80-100) Blood Gas HCO3 25 mmol/L (21-28) Arterial Bld O2 Saturation (Calc) 96 % (92-99) FiO2 21 % Urine Collection Type Unknown Urine Color Yellow Urine Clarity Clear Urine pH 5.5 Urine Specific [place] 1.010 Urine Protein 100 mg/dl (NEG-TRACE) Urine Glucose (UA) >=1000 mg/dL (NEG) Urine Ketones (Stick) 40 mg/dL (NEG) Urine Blood Trace (NEG) Urine Nitrite Neg (NEG) Urine Bilirubin Neg (NEG) Urine Urobilinogen Dipstick 0.2 mg/dL (0.2 mg/dL) Urine Leukocyte Esterase Neg (NEG) Urine RBC Occ /HPF (0-2) Urine WBC 1-4 /HPF (0-4) Urine Squamous Epithelial Cells Occ /LPF Urine Bacteria 0 /HPF (0-FEW) Urine Hyaline Casts Occ /HPF Urine Mucus Slight /LPF Test 06/01/18 22:09 Glucose (Fingerstick) 234 mg/dL (70-99) Brief Hospital Course Mr. Lundberg is a 32 old male who presented with Hyperglycemia, N/V and Dehydration Discharge Information Condition at Discharge: Improved, Stable Disposition/Orders: D/C to Home Dischare Medications Current Medications Sodium Chloride 1,000 ml @ 1,000 mls/hr Q1H IV Last administered on 06/01/18at 20:38; Admin Dose 1,000 MLS/HR; Start 06/01/18 at 20:30; Stop 06/01/18 at 21:29; Status DC Ondansetron HCl (Zofran) 8 mg 1X ONCE IV Last administered on 06/01/18at 20:37; Admin Dose 8 MG; Start 06/01/18 at 20:30; Stop 06/01/18 at 20:31; Status DC Famotidine (Pepcid Vial) 20 mg 1X ONCE IVP Last administered on 06/01/18at 20:37; Admin Dose 20 MG; Start 06/01/18 at 20:30; Stop 06/01/18 at 20:31; Status DC Insulin Human Regular (HumuLIN R VIAL) 10 unit 1X ONCE IV Last administered on 06/01/18at 20:37; Admin Dose 10 UNIT; Start 06/01/18 at 20:30; Stop 06/01/18 at 20:31; Status DC Ketorolac Tromethamine (Toradol 15mg Vial) 15 mg 1X ONCE IV Last administered on 06/01/18at 20:38; Admin Dose 15 MG; Start 06/01/18 at 20:30; Stop 06/01/18 at 20:31; Status DC Lactated Ringer's 1,000 ml @ 1,000 mls/hr 1X ONCE IV Last administered on 06/01/18at 22:03; Admin Dose 1,000 MLS/HR; Start 06/01/18 at 22:00; Stop 06/01/18 at 22:59; Status DC Insulin Human Regular (HumuLIN R VIAL) 10 unit 1X ONCE IV Last administered on 06/01/18at 22:05; Admin Dose 10 UNIT; Start 06/01/18 at 22:00; Stop 06/01/18 at 22:01; Status DC Active Scripts Active Zofran (Ondansetron Hcl) 8 Mg Tablet 8 Mg PO QIDPRN PRN Reported Novolog (Insulin Aspart) 100 Unit/1 Ml Vial 0 SQ QIDACHS Levemir (Insulin Detemir) 100 Unit/1 Ml Vial 15 Unit SQ HS Dragon Disclaimer This chart was dictated in whole or in part using Voice Recognition software in a busy, high-work load, and often noisy Emergency Department environment. It may contain unintended and wholly unrecognized errors or omissions. ANITA GUY MD Jun 01, 2018 20:12
[2018-06-01] MEDS ORDERED: KETOROLAC 15 MG/ML VIAL. IV ONE (20:30)
[2018-06-01] MEDS ORDERED: ONDANSETRON PF 4 MG/2 ML VIAL. IV ONE (20:30)
[2018-06-01] MEDS ORDERED: IV NORMAL SALINE 1,000ML 1,000 ML IV SCH (20:30)
[2018-06-01] MEDS ORDERED: FAMOTIDINE 20 MG/2 ML VIAL IVP ONE (20:30)
[2018-06-01] MEDS ORDERED: INSULIN REGULAR 100 UNIT/ML 3ML VIAL. IV ONE ×2 (20:30→22:00)
[2018-06-01 20:54] LABS: BASO # 0.1 x10^3/uL (0.0-0.2); BASO % 1 % (0-3); EOS # 0.3 x10^3/uL (0.0-0.7); EOS % 5 % (0-3); HEMATOCRIT 43.3 % (39.0-53.0); HEMOGLOBIN 15.1 g/dL (13.0-17.5); LYMPH # 2.3 x10^3/uL (1.0-4.8); LYMPH % 32 % (24-48); MEAN CORPUSCULAR HEMOGLOBIN 32 pg (25-35); MEAN CORPUSCULAR HGB CONC 35 g/dL (31-37); MEAN CORPUSCULAR VOLUME 91 fL (79-100); MONO # 0.5 x10^3/uL (0.0-1.1); MONO % 7 % (0-9); NEUT % 55 % (31-73); PLATELET COUNT 214 x10^3/uL (140-400); RED BLOOD COUNT 4.77 x10^6/uL (4.30-5.70); RED CELL DISTRIBUTION WIDTH 13.5 % (11.5-14.5); WHITE BLOOD COUNT 7.2 x10^3/uL (4.0-11.0)
[2018-06-01 20:55] LABS: BGAS PH 7.38 (7.35-7.46)
--- NOTE | 2018-06-01 21:06 | RAD ---
ACUTE ABDOMEN SERIES History: Nausea, vomiting, abdominal pain. Comparison: AP chest January 11, 2017 Findings: Single view of the chest, single upright view of the abdomen, 2 supine AP views of the abdomen are submitted. There is no infiltrate, pleural fluid, pneumothorax, free air. There is an overall nonobstructive bowel gas pattern. Impression: 1. No acute radiographic abnormality is identified. Electronically signed by: Eyal Jerry MD (06/01/2018 9:03 PM) [facility]
--- NOTE | 2018-06-01 21:13 | EKG ---
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 Electronically Signed On 06-05-2018 17:32:00 CDT by Papito Mcclain
[2018-06-01 21:14] LABS: ALBUMIN 3.7 g/dL (3.4-5.0); CALCIUM 9.3 mg/dL (8.5-10.1); CREATININE 1.7 mg/dL (0.7-1.3); DIRECT BILIRUBIN 0.1 mg/dL (0.0-0.2); GFR 57.5; MAGNESIUM 2.1 mg/dL (1.8-2.4); POTASSIUM 3.7 mmol/L (3.5-5.1); TOTAL BILIRUBIN 0.5 mg/dL (0.2-1.0); TOTAL PROTEIN 7.8 g/dL (6.4-8.2)
[2018-06-01 21:52] LABS: BARBITURATES NEG (NEG); BENZODIAZEPINES NEG (NEG); CANNABINOIDS POS (NEG); COCAINE POS (NEG); METHADONE NEG (NEG); OPIATES NEG (NEG); PHENCYCLIDINE NEG (NEG)
[2018-06-01 21:57] LABS: BACTERIA,URINE 0 /HPF (0-FEW); BILIRUBIN,URINE NEG (NEG); CLARITY,URINE CLEAR; COLOR,URINE YELLOW; GLUCOSE,URINE >=1000 mg/dL (NEG); HYALINE CASTS, URINE OCC /HPF; NITRITE,URINE NEG (NEG); RBC,URINE OCC /HPF (0-2); SQUAMOUS EPITHELIAL CELL,UR OCC /LPF; UROBILINOGEN,URINE 0.2 mg/dL (0.2 mg/dL)
[2018-06-01 22:00] LABS: AMPHETAMINE/METHAMPHETAMINE NEG (NEG)
[2018-06-01] MEDS ORDERED: IV RINGERS SOLUTION,LACTATED 1,000 ML IV ONE (22:00)
[2018-06-01] MEDS ORDERED: ONDA8TAB9 PO (22:19)
[2018-06-01 23:00] VITALS: BP 114/70
[2018-06-02 11:03] LABS: THYROID STIM HORMONE (TSH) 0.799 uIU/mL (0.358-3.740)
[2018-06-03 00:10] LABS: HEMOGLOBIN A1C 11.3 % (4.8-5.6)
== END 2018-06-01 23:11 | disposition home or self-care (01) ==
LOC: ER 19:50
DX: E11.65 Type 2 diabetes mellitus with hyperglycemia (principal); R11.2 Nausea with vomiting, unspecified; E86.9 Volume depletion, unspecified; R79.82 Elevated C-reactive protein (CRP); F17.210 Nicotine dependence, cigarettes, uncomplicated; F12.10 Cannabis abuse, uncomplicated; F14.10 Cocaine abuse, uncomplicated
CPT/HCPCS: 36415; 74022; 80048; 80061; 80076; 80307; 81001; 82150; 82550; 82803; 82947; 83036; 83690; 83735; 83880; 84443; 84484; 85025; 85610; 85730; 93005; 96361; 96374; 96375; 96376; 99285; J1815; J1885; J2405; J3490; J7120; J7030

== ENCOUNTER 2018-11-02 20:21 | Inpatient (IN) | payer SELFPAY ==
[~2018-11-02] VITALS: Ht 175.3 cm; Wt 72.8 kg
[~2018-11-02 20:21] MED LIST changes: +ONDA8TAB9 PO
[2018-11-02] MEDS ORDERED: ONDANSETRON PF 4 MG/2 ML VIAL. ONE (20:41)
[2018-11-02] MEDS ORDERED: IV NORMAL SALINE 500ML 500 ML IV ONE (21:00)
[2018-11-02] MEDS ORDERED: ONDANSETRON PF 4 MG/2 ML VIAL. IV ONE (21:00)
[2018-11-02] MEDS ORDERED: IV NORMAL SALINE 1,000ML 1,000 ML IV ONE (21:00)
--- NOTE | 2018-11-02 21:06 | EKG ---
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
[2018-11-02] MEDS ORDERED: INSU100I13 SQ (21:10)
--- NOTE | 2018-11-02 21:15 | RAD ---
Chest radiograph 11/02/2018 8:42 PM INDICATION: DKA, weakness COMPARISON: 01/11/2017 TECHNIQUE: Portable upright frontal view of the chest is provided. FINDINGS: The cardiomediastinal silhouette is within normal limits. There are no pleural effusions. There is no pulmonary vascular congestion. There is no pneumothorax. The lungs are clear. No significant osseous abnormality is identified. IMPRESSION: No acute cardiopulmonary process. Electronically signed by: Maribell Coburn MD (11/02/2018 9:11 PM) [facility]
[2018-11-02 21:17] LABS: BASO % 0 % (0-3); EOS % 0 % (0-3); HEMATOCRIT 45.9 % (39.0-53.0); HEMOGLOBIN 15.1 g/dL (13.0-17.5); LYMPH # 2.3 x10^3/uL (1.0-4.8); LYMPH % 18 % (24-48); MEAN CORPUSCULAR HEMOGLOBIN 32 pg (25-35); MEAN CORPUSCULAR HGB CONC 33 g/dL (31-37); MEAN CORPUSCULAR VOLUME 97 fL (79-100); MONO # 0.8 x10^3/uL (0.0-1.1); MONO % 6 % (0-9); NEUT # 9.7 x10^3uL (1.8-7.7); NEUT % 76 % (31-73); PLATELET COUNT 277 x10^3/uL (140-400); RED BLOOD COUNT 4.73 x10^6/uL (4.30-5.70); RED CELL DISTRIBUTION WIDTH 14.3 % (11.5-14.5); WHITE BLOOD COUNT 12.8 x10^3/uL (4.0-11.0)
[2018-11-02 21:29] LABS: ALBUMIN 4.1 g/dL (3.4-5.0); ALBUMIN/GLOBULIN RATIO 0.9 (1.0-1.7); CALCIUM 9.8 mg/dL (8.5-10.1); CREATININE 2.2 mg/dL (0.7-1.3); GFR 42.5; POTASSIUM 5.3 mmol/L (3.5-5.1); TOTAL BILIRUBIN 0.9 mg/dL (0.2-1.0); TOTAL PROTEIN 8.8 g/dL (6.4-8.2)
[2018-11-02] MEDS ORDERED: IV DEXTROSE 5 %-0.45 % NACL 1,000 ML IV SCH (22:01)
[2018-11-02] MEDS ORDERED: IV NORMAL SALINE 1,000ML 1,000 ML IV SCH ×2 (22:01)
[2018-11-02] MEDS ORDERED: INSULIN REGULAR VIAL 150 UNIT in 0.9 % SODIUM CHLORIDE 150ML 150 ML IV PRN (22:05)
[2018-11-02] MEDS ORDERED: ONDANSETRON PF 4 MG/2 ML VIAL. IV PRN (22:15)
[2018-11-02] MEDS ORDERED: POTASSIUM CHLORIDE 10MEQ 100 ML IV PRN ×5 (22:15)
[2018-11-02] MEDS ORDERED: MORPHINE SULFATE 4 MG/ML DISP.SYRIN. IV PRN (22:15)
[2018-11-02 22:29] LABS: BGAS PH 7.18 (7.35-7.46)
[2018-11-02] MEDS ORDERED: INSULIN REGULAR 100 UNIT/ML 3ML VIAL. IV ONE (22:30)
[2018-11-02 22:59] LABS: BACTERIA,URINE 0 /HPF (0-FEW); BILIRUBIN,URINE NEG (NEG); CLARITY,URINE CLEAR; COLOR,URINE STRAW; GLUCOSE,URINE 500 mg/dL (NEG); NITRITE,URINE NEG (NEG); SQUAMOUS EPITHELIAL CELL,UR OCC /LPF; UROBILINOGEN,URINE 0.2 mg/dL (0.2 mg/dL); WBC,URINE OCC /HPF (0-4)
--- NOTE | 2018-11-02 23:23 | PHYS DOC ---
Past History Past Medical History: Diabetes Past Surgical History: No Surgical History Smoking: Cigarettes, Less than 1pk/day Alcohol Use: Occasionally Drug Use: Cocaine, Marijuana Social History Narrative: states smoked marijuana last night; cocaine was a wk ago Adult General Chief Complaint Chief Complaint: NAUSEA/VOMITING/DIARRHEA HPI HPI Patient is a 33-year-old male with a history of diabetes presenting with 2 days of nausea vomiting and diarrhea apparently he stooled on himself a couple of times. He uses marijuana last night apparently he used cocaine last week denies alcohol describes upper abdominal pain and burning in nature worse before vomiting also did not take insulin today because he wasn't keeping anything down so he was worried about his blood sugar going down. Patient does not have insurance but he does take Lantus 20 a.m. 20 p.m. as well as NovoLog sliding scale Review of Systems Review of Systems Constitutional: Denies fever or chills [] Eyes: Denies change in visual acuity, redness, or eye pain [] HENT: Denies nasal congestion or sore throat [] Musculoskeletal: Denies back pain or joint pain [] Integument: Denies rash or skin lesions [] Neurologic: All other systems were reviewed and found to be within normal limits, except as documented in this note. Current Medications Current Medications Current Medications Medications (Trade) Dose Ordered Sig/Jeanine Start Time Stop Time Status Last Admin Dose Admin Dextrose/Sodium Chloride 1,000 ml @ 0 mls/hr Q0M 11/02/18 22:01 Fentanyl Citrate (Fentanyl 2ml Vial) 50 mcg 1X ONCE 11/02/18 21:00 11/02/18 21:01 DC 11/02/18 21:04 50 MCG Insulin Human Regular (HumuLIN R VIAL) 10 unit 1X ONCE 11/02/18 22:30 11/02/18 22:31 DC 11/02/18 22:31 10 UNIT Insulin Human Regular 150 unit/ Sodium Chloride 151.5 ml @ 0 mls/hr CONT PRN PRN 11/02/18 22:05 Morphine Sulfate (Morphine 4mg Syringe) 4 mg PRN Q2HR PRN 11/02/18 22:15 11/03/18 22:14 Ondansetron HCl (Zofran) 4 mg PRN Q4HRS PRN 11/02/18 22:15 11/03/18 22:14 Potassium Chloride 100 ml @ 100 mls/hr PRN Q1HR PRN 11/02/18 22:15 Sodium Chloride 1,000 ml @ 0 mls/hr Q0M 11/02/18 22:01 Allergies Allergies Allergies Coded Allergies Type Severity Reaction Last Updated Verified No Known Drug Allergies 11/02/18 No Physical Exam Physical Exam Constitutional: Well developed, well nourished, actively vomiting HENT: Normocephalic, atraumatic, bilateral external ears normal, oropharynx DRY, no oral exudates, nose normal. [] Eyes: PERRLA, EOMI, conjunctiva normal, no discharge. [] Neck: Normal range of motion, no tenderness, supple, no stridor. [] Cardiovascular: Tachycardia with no definite murmur Lungs & Thorax: Bilateral breath sounds clear to auscultation [] Abdomen: Bowel sounds normal, soft, n epigastric with negative Gutierrez's tenderness, no masses, no pulsatile masses. [] Skin: Warm, dry, no erythema, no rash. [] Back: No tenderness, no CVA tenderness. [] Extremities: No tenderness, no cyanosis, no clubbing, ROM intact, no edema. [] Neurologic: Alert and oriented X 3, normal motor function, normal sensory function, no focal deficits noted. [] Psychologic: Affect normal, judgement normal, mood normal. [] Current Patient Data Vital Signs Vital Signs Date Time Temp Pulse Resp B/P (MAP) Pulse Ox O2 Delivery O2 Flow Rate FiO2 11/02/18 20:31 98.2 122 24 95 Room Air 11/02/18 20:30 130/79 (96) Lab Results Laboratory Tests Test 11/02/18 20:36 11/02/18 20:50 11/02/18 22:24 11/02/18 22:26 Glucose (Fingerstick) 547 mg/dL (70-99) *H White Blood Count 12.8 x10^3/uL (4.0-11.0) H Red Blood Count 4.73 x10^6/uL (4.30-5.70) Hemoglobin 15.1 g/dL (13.0-17.5) Hematocrit 45.9 % (39.0-53.0) Mean Corpuscular Volume 97 fL (79-100) Mean Corpuscular Hemoglobin 32 pg (25-35) Mean Corpuscular Hemoglobin Concent 33 g/dL (31-37) Red Cell Distribution Width 14.3 % (11.5-14.5) Platelet Count 277 x10^3/uL (140-400) Neutrophils (%) (Auto) 76 % (31-73) H Lymphocytes (%) (Auto) 18 % (24-48) L Monocytes (%) (Auto) 6 % (0-9) Eosinophils (%) (Auto) 0 % (0-3) Basophils (%) (Auto) 0 % (0-3) Neutrophils # (Auto) 9.7 x10^3uL (1.8-7.7) H Lymphocytes # (Auto) 2.3 x10^3/uL (1.0-4.8) Monocytes # (Auto) 0.8 x10^3/uL (0.0-1.1) Eosinophils # (Auto) 0.0 x10^3/uL (0.0-0.7) Basophils # (Auto) 0.0 x10^3/uL (0.0-0.2) Sodium Level 131 mmol/L (136-145) L Potassium Level 5.3 mmol/L (3.5-5.1) H Chloride Level 89 mmol/L (98-107) L Carbon Dioxide Level 12 mmol/L (21-32) L Anion Gap 30 (6-14) H Blood Urea Nitrogen 35 mg/dL (8-26) H Creatinine 2.2 mg/dL (0.7-1.3) H Estimated GFR (Cockcroft-Gault) 42.5 BUN/Creatinine Ratio 16 (6-20) Glucose Level 582 mg/dL (70-99) *H Calcium Level 9.8 mg/dL (8.5-10.1) Total Bilirubin 0.9 mg/dL (0.2-1.0) Aspartate Amino Transferase (AST) 15 U/L (15-37) Alanine Aminotransferase (ALT) 22 U/L (16-63) Alkaline Phosphatase 98 U/L (46-116) Troponin I Quantitative < 0.017 ng/mL (0-0.055) Total Protein 8.8 g/dL (6.4-8.2) H Albumin 4.1 g/dL (3.4-5.0) Albumin/Globulin Ratio 0.9 (1.0-1.7) L Lipase 60 U/L (73-393) L Blood pH 7.18 (7.35-7.46) *L Blood Gas PCO2 30 mmHg (35-46) L Blood Gas PO2 100 mmHg (80-100) Blood Gas HCO3 11 mmol/L (21-28) L Arterial Bld O2 Saturation (Calc) 96 % (92-99) FiO2 21 % Urine Collection Type Unknown Urine Color Straw Urine Clarity Clear Urine pH 5.0 Urine Specific [place] 1.015 Urine Protein 30 mg/dl (NEG-TRACE) Urine Glucose (UA) 500 mg/dL (NEG) Urine Ketones (Stick) >=160 mg/dL (NEG) Urine Blood Small (NEG) Urine Nitrite Neg (NEG) Urine Bilirubin Neg (NEG) Urine Urobilinogen Dipstick 0.2 mg/dL (0.2 mg/dL) Urine Leukocyte Esterase Neg (NEG) Urine RBC 1-2 /HPF (0-2) Urine WBC Occ /HPF (0-4) Urine Squamous Epithelial Cells Occ /LPF Urine Bacteria 0 /HPF (0-FEW) EKG EKG []Sinus tachycardia rate of 121 QTc 449 no STEMI Radiology/Procedures Radiology/Procedures [] Impressions: TECHNIQUE: Portable upright frontal view of the chest is provided. FINDINGS: The cardiomediastinal silhouette is within normal limits. There are no pleural effusions. There is no pulmonary vascular congestion. There is no pneumothorax. The lungs are clear. No significant osseous abnormality is identified. IMPRESSION: No acute cardiopulmonary process. Electronically signed by: Georgina Small MD (11/02/2018 9:11 PM) [facility] [place] DICTATED AND SIGNED BY: GEORGINA SMALL MD DATE: 11/02/182110 CC: JIGAR CHIANG MD; PCP,NO ~ Course & Med Decision Making Course & Med Decision Making Pertinent Labs and Imaging studies reviewed. (See chart for details) []4 Critical care time was 45 minutes exclusive of procedures. Diabetic ketoacidosis insulin drip initiated orders were placed for Y protocol and spoke with Dr. Elsi STAPLES 40 5 PM plan to admit to the ICU for treatment. This point time patient has had some vomiting and diarrhea perhaps he has a viral syndrome ongoing addition he has had some drug use the last week or so perhaps those 2 things together a contributing to the DKA. Abdominal examination was fairly benign overall. Dragon Disclaimer Dragon Disclaimer This electronic medical record was generated, in whole or in part, using a voice recognition dictation system. Departure Departure: Impression: Primary Impression: Diabetic ketoacidosis Disposition: ADMITTED INPATIENT Admitting Physician: Rafael Sargent Condition: GUARDED Referrals: PCP,SOLEDAD (PCP) JIGAR CHIANG MD Nov 02, 2018 23:23
[2018-11-02] MEDS ORDERED: 0.9 % SODIUM CHLORIDE 150ML 150 ML ONE ×2 (23:34→23:45)
[2018-11-02 23:40] VITALS: BP 127/58
[2018-11-02] MEDS: IV NORMAL SALINE 1,000ML 1,000 ML IV SCH (23:45)
[2018-11-03] VITALS (22 sets, daily range): BP systolic 101–183; BP diastolic 45–92
[2018-11-03] MEDS ORDERED: INSU100C SQ (00:25)
[2018-11-03] MEDS ORDERED: IV NORMAL SALINE 1,000ML 1,000 ML IV ONE (01:00)
[2018-11-03] MEDS: METOCLOPRAMIDE HCL 10 MG/2 ML VIAL. IV PRN ×2 (01:00→17:24)
[2018-11-03] MEDS: IV NORMAL SALINE 1,000ML 1,000 ML IV SCH ×2 (01:57→07:45)
[2018-11-03] MEDS ORDERED: IV DEXTROSE 5 %-0.45 % NACL 1,000 ML IV ONE (02:45)
[2018-11-03 04:29] LABS: CALCIUM 8.6 mg/dL (8.5-10.1); CREATININE 1.9 mg/dL (0.7-1.3); GFR 50.3; POTASSIUM 4.4 mmol/L (3.5-5.1)
[2018-11-03] MEDS: POTASSIUM CL 20MEQ D5-0.45NACL 1,000 ML IV SCH ×3 (05:00→18:26)
[2018-11-03 08:16] LABS: ALBUMIN 3.2 g/dL (3.4-5.0); ALBUMIN/GLOBULIN RATIO 0.8 (1.0-1.7); CALCIUM 8.6 mg/dL (8.5-10.1); CREATININE 1.6 mg/dL (0.7-1.3); GFR 61.3; POTASSIUM 4.1 mmol/L (3.5-5.1); TOTAL BILIRUBIN 0.6 mg/dL (0.2-1.0)
[2018-11-03] MEDS ORDERED: FLU VAX QS 2019-20 (36MOS+)/PF 0.5 ML SYRINGE. VAX IM ONE (09:00)
[2018-11-03] MEDS ORDERED: DEXTROSE 50% 25 GM / 50ML DISP.SYRIN. IV PRN (11:15)
--- NOTE | 2018-11-03 11:43 | HP ---
ADMIT DATE: 11/02/2018 HISTORY OF PRESENT ILLNESS: The patient is a 33-year-old -[place] male patient who came to the Emergency Room complaining of recurrent bouts of nausea, vomiting and diarrhea. Apparently, he was incontinent a couple of times. He used marijuana the night before admission and also cocaine about a week ago. He denied any alcohol and describes upper abdominal pain with burning sensation worse before vomiting. Did not take any insulin. He was not able to keep anything down and was worried about his blood sugar going down. He does not have any insurance and he is normally on Lantus 20 units twice a day as well as NovoLog sliding scale. When he arrived to the Emergency Room, his blood sugar was 582. He was also acidotic with high anion gap, has dilutional hyponatremia, hyperkalemia and acute kidney injury. His pH was 7.18, pCO2 of 30 and bicarbonate 11 and was admitted with diabetic ketoacidosis, started on IV fluid as well as insulin drip and was admitted to ICU. He did receive at least 2 liters of normal saline before he arrived to the ICU. PAST MEDICAL HISTORY: Significant for type 1 diabetes, on insulin. PAST SURGICAL HISTORY: Unremarkable. ALLERGIES: No known drug allergies. FAMILY HISTORY: Noncontributory. SOCIAL HISTORY: Apparently lives with his sister. He does smoke. Claims that does not drink alcohol. He has used marijuana the night before admission and cocaine about a week ago. He is single, but stated that he has 4 children. REVIEW OF SYSTEMS: As per history of present illness. PHYSICAL EXAMINATION: GENERAL: On arrival to the Emergency Room, he was clearly tachypneic, but no pallor, jaundice, cyanosis, or thyromegaly. No jugular venous distension. No limb edema. VITAL SIGNS: His heart rate was 122, blood pressure was 130/79, temperature was 98.2, respiratory rate was 24, and oxygen saturation was 93% on room air. HEAD, EYES, EARS, NOSE AND THROAT: Showed normocephalic, atraumatic. NECK: Supple. HEART: Showed normal first and second heart sounds. No gallop or murmur. CHEST: Clear to auscultation. No crepitation or rhonchi. ABDOMEN: Distended, soft, nontender. No guarding or rigidity. No organomegaly. All hernial orifice intact. Bowel sounds normal. NEUROLOGIC: He was alert, oriented x 3 with no obvious lateralizing sign. LABORATORY DATA: While in the Emergency Room, his lab work done showed a white cell count 12,800, hemoglobin 15, hematocrit 45, MCV 97 and platelet count 277,000 with normal manual differential. His chemistry showed a serum sodium 131, potassium 5.3, chloride 89, bicarbonate 12, anion gap of 30, BUN 35, creatinine 2.2, estimated GFR was 42 mL per minute. His glucose was 582, calcium was 9.8. Total bilirubin, AST, ALT, alkaline phosphatase were normal. Total protein was 8.8, albumin was 4.1. Lipase was 60. His arterial blood gases showed a pH of 7.18, pCO2 of 30, pO2 of 100, bicarbonate 11 and oxygen saturation was 96% on FiO2 of 21%. His urinalysis showed the urine was straw colored, clear with a pH of 5, specific gravity of 1.015 with small amount of protein, large amount of glucose, large amount of ketones, small amount of blood, negative for nitrite, leukocyte esterase, 1-2 rbc's, occasional wbc's, and no bacteria. His chest x-ray showed that the cardiomediastinal silhouette is within normal limits. There are no pleural effusions. There is no pulmonary vascular congestion, no pneumothorax. The lungs are clear. No significant osseous abnormalities identified. ASSESSMENT AND PLAN: In summary, this is a 33-year-old -[place] male patient with type 1 diabetes mellitus who came again with recurrent bouts of nausea, vomiting in a background of marijuana abuse. He stated also used cocaine about a week to week and a half ago. He was diagnosed with diabetic ketoacidosis with severe metabolic acidosis and high anion gap, has also dilutional hyponatremia, hyperkalemia and acute kidney injury for which he was treated aggressively with rehydration as well as insulin drip. We will obviously follow the protocol and once he has had no further episodes of nausea or vomiting, we will start him on 1800 ADA diet, put him back on his insulin. DEMETRIUS BAIN MD DR: JH/moses JOB#: [id number] / [id number]
[2018-11-03] MEDS: INSULIN LISPRO 300 UNITS/3 ML VIAL. SQ SCH ×2 (12:00→17:22)
--- NOTE | 2018-11-03 12:16 | PN ---
DATE: 11/03/2018 SUBJECTIVE: The patient is resting, slightly propped up in bed, in no apparent distress, awake, alert. On questioning him, he denied any further episodes of nausea and vomiting. Denied any abdominal or chest pain. When I examined him, he looked well and was clearly in no apparent respiratory distress. No pallor, jaundice, cyanosis, or thyromegaly. No jugular venous distention. No lower limb edema. PHYSICAL EXAMINATION: VITAL SIGNS: His heart rate was 114, blood pressure was 150/78, temperature was 97.9, respiratory rate was 20, and oxygen saturation was 96%. HEAD, EYES, EARS, NOSE, AND THROAT: Normocephalic, atraumatic. NECK: Supple. HEART: Showed normal first and second heart sounds. No gallop or murmur. CHEST: Clear to auscultation. No crepitation or rhonchi. ABDOMEN: Scaphoid, soft, and nontender. NEUROLOGICAL: He is awake, alert, responding appropriately. All cranial nerves intact. He moves extremities without difficulty. His intake 4760, output was 800. LABORATORY DATA: As of this morning, his serum sodium 140, potassium 4.1, chloride 107, bicarbonate 24, anion gap of 9, BUN 23, creatinine 1.6, estimated GFR was 61 mL per minute. His glucose 132, calcium was 8.6. Total bilirubin, AST, ALT, alkaline phosphatase were normal. Total protein 7, albumin 3.2. IMPRESSION: Diabetic ketoacidosis, improving. His anion gap came down from 30 to 9. [id number] kidney injury. His creatinine came down from 2.2 to 1.6. PLAN: My plan is to resume his insulin. Continue with IV fluid. He is on 1800 ADA diet and once he is stable, hopefully tomorrow morning, can be discharged home. DEMETRIUS BAIN MD DR: JH/moses JOB#: [id number] / [id number]
[2018-11-03] MEDS ORDERED: INSULIN LISPRO 300 UNITS/3 ML VIAL. SQ ONE (15:00)
[2018-11-03] MEDS ORDERED: INSULIN GLARGINE SYRINGE. SQ ONE (21:00)
[2018-11-03] MEDS: INSULIN GLARGINE SYRINGE. SQ SCH (21:20)
[2018-11-04] VITALS (9 sets, daily range): BP systolic 131–182; BP diastolic 66–106
[2018-11-04 06:32] LABS: CALCIUM 8.6 mg/dL (8.5-10.1); CREATININE 1.2 mg/dL (0.7-1.3); GFR 85.4; POTASSIUM 3.7 mmol/L (3.5-5.1)
[2018-11-04] MEDS ORDERED: INSULIN GLARGINE SYRINGE. SQ ONE (09:00)
[2018-11-04] MEDS: INSULIN LISPRO 300 UNITS/3 ML VIAL. SQ SCH ×2 (09:12→11:48)
[2018-11-04] MEDS: INSULIN GLARGINE SYRINGE. SQ SCH (09:12)
--- NOTE | 2018-11-05 00:11 | DS ---
DATE OF DISCHARGE: 11/04/2018 HOSPITAL COURSE: The patient is a 33-year-old -[place] male patient who yet again came with another episode of diabetic ketoacidosis. His blood sugar was extremely high at 582 mg/dL. He has dilutional hyponatremia, hyperkalemia, and acute kidney injury. His creatinine was up to 2.2. He was treated aggressively with IV fluid and insulin drip and did very well. His anion gap has closed, it is down from 30-12. His BUN and creatinine has normalized. In fact, his creatinine was up to 2.2, this morning was 1.2. The patient himself is feeling very well, has no further episodes of nausea, vomiting. No abdominal pain. Tolerating his diet. In fact, his blood sugar was only 137 mg/dL, this is before lunch and the patient will be discharged home to continue on his current insulin regimen. PHYSICAL EXAMINATION: GENERAL: When I saw him this afternoon, he looked well and was clearly, in no apparent respiratory distress. No pallor, jaundice, cyanosis, or thyromegaly. No jugular venous distension. No limb edema. VITAL SIGNS: His heart rate was 107, blood pressure was 182/79, temperature was 98.7, respiratory rate was 10 and oxygen saturation was 96%. The rest of the clinical exam stable. LABORATORY DATA: His lab work this morning showed a serum sodium 135, potassium 3.7, chloride 101, bicarbonate 22, anion gap of 12, BUN 9, creatinine 1.2, estimated GFR was 85 mL, glucose was 256 and calcium was 8.6. His white cell count was 12,800, hemoglobin 15, hematocrit 45, MCV 97 and platelet count 257,000. DISCHARGE MEDICATIONS: The patient was discharged home to continue on his Lantus insulin at 20 units at bedtime and Humalog insulin as well as ____ before meals. FINAL DISCHARGE DIAGNOSES: 1. Type 1 diabetes mellitus. 2. Diabetic ketoacidosis. 3. Dilutional hyponatremia. 4. Acute kidney injury resolved. DEMETRIUS BAIN MD DR: JH/moses JOB#: [id number] / [id number]
== END 2018-11-04 14:40 | disposition home or self-care (01) | DRG 638 ==
LOC: ER 20:21 → ICU 23:07
PROVIDERS: ADMIT Internal Medicine; ATTEND Internal Medicine
DX: E10.10 Type 1 diabetes mellitus with ketoacidosis without coma (principal); E87.1 Hypo-osmolality and hyponatremia; N17.9 Acute kidney failure, unspecified; F12.10 Cannabis abuse, uncomplicated; Z79.4 Long term (current) use of insulin; E87.5 Hyperkalemia; F17.200 Nicotine dependence, unspecified, uncomplicated; E10.22 Type 1 diabetes mellitus with diabetic chronic kidney disease; N18.9 Chronic kidney disease, unspecified
CPT/HCPCS: 36415; 71045; 80048; 80053; 81001; 82803; 82947; 83690; 84484; 85025; 93005; 96361; 96374; 96375; 96376; 99406; J1815; J2405; J2765; J3010; J7040; 99291-25; J7030

== ENCOUNTER 2019-07-01 10:22 | Inpatient (IN) | payer SELFPAY ==
[~2019-07-01] VITALS: Ht 175.3 cm; Wt 84.6 kg
[2019-07-01] VITALS (10 sets, daily range): BP systolic 113–150; BP diastolic 62–85
[2019-07-01] MEDS ORDERED: ONDANSETRON PF 4 MG/2 ML VIAL. ONE (10:31)
[2019-07-01] MEDS ORDERED: INSULIN REGULAR 100 UNIT/ML 3ML VIAL. SQ ONE (11:00)
[2019-07-01] MEDS ORDERED: IOHEXOL 300 MG/ML 75 ML VIAL. IV ONE (11:15)
[2019-07-01] MEDS ORDERED: FAMOTIDINE 20 MG/2 ML VIAL IVP ONE (11:15)
[2019-07-01] MEDS ORDERED: IV NORMAL SALINE 1,000ML 1,000 ML IV ONE ×2 (11:15→12:15)
[2019-07-01 11:23] LABS: BASO # 0.1 x10^3/uL (0.0-0.2); BASO % 1 % (0-3); EOS % 0 % (0-3); HEMATOCRIT 45.4 % (39.0-53.0); HEMOGLOBIN 15.4 g/dL (13.0-17.5); LYMPH # 2.2 x10^3/uL (1.0-4.8); LYMPH % 14 % (24-48); MEAN CORPUSCULAR HEMOGLOBIN 32 pg (25-35); MEAN CORPUSCULAR HGB CONC 34 g/dL (31-37); MEAN CORPUSCULAR VOLUME 96 fL (79-100); MONO # 0.4 x10^3/uL (0.0-1.1); MONO % 3 % (0-9); NEUT # 12.5 x10^3uL (1.8-7.7); NEUT % 82 % (31-73); PLATELET COUNT 267 x10^3/uL (140-400); RED BLOOD COUNT 4.75 x10^6/uL (4.30-5.70); RED CELL DISTRIBUTION WIDTH 13.8 % (11.5-14.5); WHITE BLOOD COUNT 15.2 x10^3/uL (4.0-11.0)
[2019-07-01] MEDS ORDERED: diphenhydrAMINE 50 MG/ML VIAL IVP ONE (11:30)
[2019-07-01] MEDS ORDERED: METOCLOPRAMIDE HCL 10 MG/2 ML VIAL. IVP ONE (11:30)
[2019-07-01 11:39] LABS: BILIRUBIN,URINE NEG (NEG); CLARITY,URINE HAZY; COLOR,URINE YELLOW; GLUCOSE,URINE 500 mg/dL (NEG); NITRITE,URINE NEG (NEG); UROBILINOGEN,URINE 0.2 mg/dL (0.2 mg/dL)
[2019-07-01 11:40] LABS: BACTERIA,URINE 0 /HPF (0-FEW); SQUAMOUS EPITHELIAL CELL,UR OCC /LPF; WBC,URINE OCC /HPF (0-4)
[2019-07-01 11:44] LABS: BARBITURATES NEG (NEG); BENZODIAZEPINES NEG (NEG); CANNABINOIDS POS (NEG); COCAINE POS (NEG); METHADONE NEG (NEG); OPIATES NEG (NEG); PHENCYCLIDINE NEG (NEG)
[2019-07-01 11:46] LABS: ALBUMIN 3.7 g/dL (3.4-5.0); ALBUMIN/GLOBULIN RATIO 0.8 (1.0-1.7); CALCIUM 9.7 mg/dL (8.5-10.1); CREATININE 1.8 mg/dL (0.7-1.3); GFR 53.5; MAGNESIUM 2.3 mg/dL (1.8-2.4); TOTAL BILIRUBIN 0.8 mg/dL (0.2-1.0); TOTAL PROTEIN 8.2 g/dL (6.4-8.2)
[2019-07-01 11:47] LABS: AMPHETAMINE/METHAMPHETAMINE NEG (NEG)
[2019-07-01] MEDS ORDERED: IV NORMAL SALINE 1,000ML 1,000 ML IV SCH (12:15)
[2019-07-01] MEDS ORDERED: INSULIN REGULAR VIAL 100 UNIT in IV NORMAL SALINE 100ML 100 ML IV ONE (12:15)
[2019-07-01] MEDS ORDERED: INSULIN REGULAR VIAL 100 UNIT in IV NORMAL SALINE 100ML 100 ML IV PRN (12:15)
--- NOTE | 2019-07-01 12:21 | PHYS DOC ---
Past History Past Medical History: Diabetes Past Surgical History: No Surgical History Smoking: Cigarettes, Less than 1pk/day Additional Smoking Information: 1/4 pack Alcohol Use: None Drug Use: Cocaine, Marijuana General Adult EDM: Chief Complaint: HYPERGLYCEMIA HPI: HPI: 33-year-old male with past medical history of diabetes mellitus presents with report of nausea and vomiting with associated epigastric pain x2 days. Reports he is also had some diarrhea. Patient reports he cannot keep anything down. Denies known sick contacts. Patient does report he has not taken his insulin today. Patient reports he also used cocaine 2 days ago. Denies fever. Denies travel outside [place]. Denies known exposure to COVID-19. Review of Systems: Review of Systems: Constitutional: Denies fever or chills Eyes: Denies redness or eye pain HENT: Denies nasal congestion or sore throat Respiratory: Denies cough; reports shortness of breath Cardiovascular: Denies chest pain or palpitations GI: Reports upper abdominal pain, nausea, vomiting, and diarrhea : Denies dysuria or hematuria Musculoskeletal: Denies back pain or joint pain Integument: Denies rash or skin lesions Neurologic: Denies headache, focal weakness or sensory changes Complete systems were reviewed and found to be within normal limits, except as documented in this note. Current Medications: Current Meds: Current Medications Medications (Trade) Dose Ordered Sig/Jeanine Start Time Stop Time Status Last Admin Dose Admin Diphenhydramine HCl (Benadryl) 25 mg 1X ONCE 07/01/19 11:30 07/01/19 11:31 DC 07/01/19 11:33 25 MG Famotidine (Pepcid Vial) 20 mg 1X ONCE 07/01/19 11:15 07/01/19 11:16 DC 07/01/19 11:10 20 MG Insulin Human Regular (HumuLIN R VIAL) 9 unit 1X ONCE 07/01/19 11:00 07/01/19 11:03 DC 07/01/19 11:14 9 UNIT Insulin Human Regular 100 unit/ Sodium Chloride 101 ml @ 0 mls/hr CONT PRN PRN 07/01/19 12:15 UNV Iohexol (Omnipaque 300 Mg/ml) 75 ml 1X ONCE 07/01/19 11:15 07/01/19 11:16 DC 07/01/19 12:00 75 ML Metoclopramide HCl (Reglan Vial) 10 mg 1X ONCE 07/01/19 11:30 07/01/19 11:31 DC 07/01/19 11:34 10 MG Ondansetron HCl (Zofran) 4 mg PRN Q4HRS PRN 07/01/19 12:15 07/02/19 12:14 UNV Sodium Chloride 1,000 ml @ 0 mls/hr Q0M 07/01/19 12:09 UNV Allergies: Allergies: Allergies Coded Allergies Type Severity Reaction Last Updated Verified No Known Drug Allergies 11/02/18 No Physical Exam: PE: Constitutional: Well developed, well nourished, uncomfortable, non-toxic appearance HENT: Normocephalic, atraumatic, oropharynx dry Eyes: Conjunctiva normal, no discharge Neck: Normal range of motion, no tenderness, supple Cardiovascular: Heart rate tachycardic, regular rhythm Lungs & Thorax: Bilateral breath sounds clear to auscultation, no wheezing, tachypnea Abdomen: Soft, upper abdominal tenderness, no distention, negative McBurney's point Skin: Warm, dry, no erythema, no rash Extremities: No tenderness, ROM intact, no edema Neurologic: Alert and oriented X 3, normal motor function, normal sensory function, no focal deficits noted Psychologic: Affect anxious, judgment normal Current Patient Data: Labs: Laboratory Tests Test 07/01/19 10:34 07/01/19 11:00 07/01/19 11:06 Glucose (Fingerstick) 523 mg/dL (70-99) *H Urine Collection Type Unknown Urine Color Yellow Urine Clarity Hazy Urine pH 5.5 Urine Specific Moro 1.015 Urine Protein 100 mg/dl (NEG-TRACE) Urine Glucose (UA) 500 mg/dL (NEG) Urine Ketones (Stick) >=160 mg/dL (NEG) Urine Blood Small (NEG) Urine Nitrite Neg (NEG) Urine Bilirubin Neg (NEG) Urine Urobilinogen Dipstick 0.2 mg/dL (0.2 mg/dL) Urine Leukocyte Esterase Neg (NEG) Urine RBC 3-5 /HPF (0-2) Urine WBC Occ /HPF (0-4) Urine Squamous Epithelial Cells Occ /LPF Urine Bacteria 0 /HPF (0-FEW) Urine Opiates Screen Neg (NEG) Urine Methadone Screen Neg (NEG) Urine Barbiturates Neg (NEG) Urine Phencyclidine Screen Neg (NEG) Urine Amphetamine/Methamphetamine Neg (NEG) Urine Benzodiazepines Screen Neg (NEG) Urine Cocaine Screen Pos (NEG) Urine Cannabinoids Screen Pos (NEG) Urine Ethyl Alcohol Neg (NEG) White Blood Count 15.2 x10^3/uL (4.0-11.0) H Red Blood Count 4.75 x10^6/uL (4.30-5.70) Hemoglobin 15.4 g/dL (13.0-17.5) Hematocrit 45.4 % (39.0-53.0) Mean Corpuscular Volume 96 fL (79-100) Mean Corpuscular Hemoglobin 32 pg (25-35) Mean Corpuscular Hemoglobin Concent 34 g/dL (31-37) Red Cell Distribution Width 13.8 % (11.5-14.5) Platelet Count 267 x10^3/uL (140-400) Neutrophils (%) (Auto) 82 % (31-73) H Lymphocytes (%) (Auto) 14 % (24-48) L Monocytes (%) (Auto) 3 % (0-9) Eosinophils (%) (Auto) 0 % (0-3) Basophils (%) (Auto) 1 % (0-3) Neutrophils # (Auto) 12.5 x10^3uL (1.8-7.7) H Lymphocytes # (Auto) 2.2 x10^3/uL (1.0-4.8) Monocytes # (Auto) 0.4 x10^3/uL (0.0-1.1) Eosinophils # (Auto) 0.0 x10^3/uL (0.0-0.7) Basophils # (Auto) 0.1 x10^3/uL (0.0-0.2) Platelet Estimate Pending Prothrombin Time 9.9 SEC (9.4-11.4) Prothrombin Time INR 1.0 (0.9-1.1) Activated Partial Thromboplast Time 21 SEC (23-33) L Sodium Level 132 mmol/L (136-145) L Potassium Level 5.0 mmol/L (3.5-5.1) Chloride Level 91 mmol/L (98-107) L Carbon Dioxide Level 10 mmol/L (21-32) *L Anion Gap 31 (6-14) H Blood Urea Nitrogen 30 mg/dL (8-26) H Creatinine 1.8 mg/dL (0.7-1.3) H Estimated GFR (Cockcroft-Gault) 53.5 BUN/Creatinine Ratio 17 (6-20) Glucose Level 543 mg/dL (70-99) *H Lactic Acid Level 3.5 mmol/L (0.4-2.0) H Calcium Level 9.7 mg/dL (8.5-10.1) Magnesium Level 2.3 mg/dL (1.8-2.4) Total Bilirubin 0.8 mg/dL (0.2-1.0) Aspartate Amino Transferase (AST) 18 U/L (15-37) Alanine Aminotransferase (ALT) 23 U/L (16-63) Alkaline Phosphatase 91 U/L (46-116) Creatine Kinase 537 U/L (39-308) H Creatine Kinase MB (Mass) 2.0 ng/mL (0.0-3.6) Creatine Kinase MB Relative Index 0.4 % (0-4) Troponin I Quantitative < 0.017 ng/mL (0-0.055) Total Protein 8.2 g/dL (6.4-8.2) Albumin 3.7 g/dL (3.4-5.0) Albumin/Globulin Ratio 0.8 (1.0-1.7) L Lipase 58 U/L (73-393) L Acetone Level Sm pos (NEG) Vital Signs: Vital Signs Date Time Temp Pulse Resp B/P (MAP) Pulse Ox O2 Delivery O2 Flow Rate FiO2 07/01/19 11:54 122 24 155/75 (101) 99 Room Air 07/01/19 10:35 97.5 EKG: EKG: @1107 Sinus tachycardia at 112bpm, QRS 96ms, QT/QTc 334/458ms Radiology/Procedures: Radiology/Procedures: PROCEDURE: CT ABD PELV W/ IV CONTRST ONLY CT abdomen and pelvis with contrast History: Abdominal pain, nausea and vomiting Technique: After the administration of intravenous contrast, CT imaging was performed of the abdomen and pelvis. No oral contrast was given as per request. Multiplanar images are reviewed. Exposure: One or more of the following individualized dose reduction techniques were utilized for this examination: 1. Automated exposure control 2. Adjustment of the mA and/or kV according to patient size 3. Use of iterative reconstruction technique. Comparison: None Findings: There is some motion degradation. There is no significant abnormality of the visualized lung bases. There is no significant focal abnormality of the liver, spleen, pancreas, adrenal glands. There is probable hepatic steatosis. Both kidneys enhance without hydronephrosis. There is a hypodense lesion of the inferior left kidney about 0.9 cm in size, density measurements greater than a simple cyst at about 26 Hounsfield units. Gallbladder is present without obvious intraluminal abnormality by CT. Accurate evaluation of bowel is limited without oral contrast. There is no significant inflammatory change adjacent to the bowel. There is no evidence of bowel obstruction, free fluid, or free air. Appendiceal caliber is somewhat prominent on the order of 7 mm although the appendix is mostly filled with gas and not associated with significant wall thickening or adjacent inflammatory change. Urinary bladder is distended. Difficult to accurately characterize due to lack of oral contrast, there is probable at least mild long segment colonic wall thickening variably involving the ascending through the descending colon, no significant adjacent inflammatory-type change of the fat. There is some linear hyperdensity of the penis which may be calcification as there is no contrast in the urinary bladder during exam. Impression: 1. While appendix caliber is somewhat prominent, there are no other findings suggestive of acute appendicitis. While suboptimal evaluation without oral contrast, there is likely long segment colonic wall thickening as may be seen with colitis in the appropriate clinical setting. 2. There is distention of the urinary bladder. 3. There is probable hepatic steatosis. 4. There is a hypodense lesion of the inferior left kidney indeterminate for simple cyst although possibly somewhat complex cyst, could be further characterized with nonemergent ultrasound as per clinical indication. Electronically signed by: Eyal Jerry MD (07/01/2019 12:22 PM) [id number] Course & Med Decision Making: Course & Med Decision Making Pertinent Labs and Imaging studies reviewed. (See chart for details) Patient with past medical history of diabetes mellitus who is insulin-dependent presents with intractable nausea and vomiting with associated abdominal pain. Patient hyperventilating. Concern for DKA. IV fluid hydration provided. Sym ptomatic treatment provided. Accu-Chek greater than 500. Insulin bolus given subcutaneously. Labs obtained and posted to chart. Labs consistent for acute diabetic ketoacidosis. Acute renal insufficiency noted. Insulin drip initiated. CT abdomen/pelvis without acute finding. Some discussion regarding size of appendix however patient with no focal tenderness to right lower qu adrant. Abdominal pain more likely secondary to patient's DKA status. Patient requiring admission for further evaluation and treatment. Discussed with Dr. Sargent (hospitalist) who is in agreement with admission. Discussed findings and plan with patient, who acknowledges understanding and agreement. Dragon Disclaimer: Dragon Disclaimer: This electronic medical record was generated, in whole or in part, using a voice recognition dictation system. Departure Departure: Impression: Primary Impression: Diabetic ketoacidosis Qualified Codes: E13.10 - Other specified diabetes mellitus with ketoacidosis without coma Additional Impressions: Ekmne-de-kifsipj kidney injury Qualified Codes: N17.9 - Acute kidney failure, unspecified; N18.9 - Chronic kidney disease, unspecified Cocaine abuse Disposition: ADMITTED INPATIENT (ICU) Admitting Physician: Rafael Sargent Condition: GUARDED Referrals: [facility] (PCP) Critical Care Time Critical care time was 30 minutes which includes time at bedside, spent in discussion of patient's care with specialists and/or family members, with interpretation of laboratory and/or radiological studies and is exclusive of procedures. YANETH MONZON DO July 01, 2019 12:21
--- NOTE | 2019-07-01 12:24 | RAD ---
CT abdomen and pelvis with contrast History: Abdominal pain, nausea and vomiting Technique: After the administration of intravenous contrast, CT imaging was performed of the abdomen and pelvis. No oral contrast was given as per request. Multiplanar images are reviewed. Exposure: One or more of the following individualized dose reduction techniques were utilized for this examination: 1. Automated exposure control 2. Adjustment of the mA and/or kV according to patient size 3. Use of iterative reconstruction technique. Comparison: None Findings: There is some motion degradation. There is no significant abnormality of the visualized lung bases. There is no significant focal abnormality of the liver, spleen, pancreas, adrenal glands. There is probable hepatic steatosis. Both kidneys enhance without hydronephrosis. There is a hypodense lesion of the inferior left kidney about 0.9 cm in size, density measurements greater than a simple cyst at about 26 Hounsfield units. Gallbladder is present without obvious intraluminal abnormality by CT. Accurate evaluation of bowel is limited without oral contrast. There is no significant inflammatory change adjacent to the bowel. There is no evidence of bowel obstruction, free fluid, or free air. Appendiceal caliber is somewhat prominent on the order of 7 mm although the appendix is mostly filled with gas and not associated with significant wall thickening or adjacent inflammatory change. Urinary bladder is distended. Difficult to accurately characterize due to lack of oral contrast, there is probable at least mild long segment colonic wall thickening variably involving the ascending through the descending colon, no significant adjacent inflammatory-type change of the fat. There is some linear hyperdensity of the penis which may be calcification as there is no contrast in the urinary bladder during exam. Impression: 1. While appendix caliber is somewhat prominent, there are no other findings suggestive of acute appendicitis. While suboptimal evaluation without oral contrast, there is likely long segment colonic wall thickening as may be seen with colitis in the appropriate clinical setting. 2. There is distention of the urinary bladder. 3. There is probable hepatic steatosis. 4. There is a hypodense lesion of the inferior left kidney indeterminate for simple cyst although possibly somewhat complex cyst, could be further characterized with nonemergent ultrasound as per clinical indication. Electronically signed by: Eyal Jerry MD (07/01/2019 12:22 PM) [id number]
[2019-07-01 12:43] LABS: BGAS PH 7.14 (7.35-7.46)
--- NOTE | 2019-07-01 13:19 | EKG ---
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
[2019-07-01 14:13] LABS: % BANDS 3 % (0-9); % LYMPHS 14 % (24-48); % MONOS 7 % (0-10); % SEGS 76 % (35-66)
[2019-07-01 14:16] LABS: PLT ESTIMATE ADEQUATE (ADEQUATE)
--- NOTE | 2019-07-01 14:30 | NUR ---
The patient, REBA MCLEOD, 33 y/o, M admitted by DEMETRIUS BAIN MD, was given written information regarding hospital policies, unit procedures and contact persons. Valuables were checked and left in room. Patient arrived via EMS to ICU 1 with belongings. Patients vitals stable upon arrival. Orders to place patient on IV Fluids and insulin gtt. Dr Bain notified of arrival to unit. Patient complains of nausea and abdominal pain, states pain occurred about 4 days ago. Patient will have episodes of emesis and then will fall back asleep. Will continue to monitor patient during this time.
[2019-07-01] MEDS: ONDANSETRON PF 4 MG/2 ML VIAL. IVP PRN ×3 (14:36→23:57)
--- NOTE | 2019-07-01 15:25 | NUR ---
Patient resting in bed at this time, awaiting for physician to see patient. Vitals stable and remains on insulin gtt. Will plan to discuss options for pain control and antiemetics.
[2019-07-01] MEDS ORDERED: PIP/TAZO PER PHARMACY MC PRN (16:00)
[2019-07-01] MEDS ORDERED: ONDANSETRON PF 4 MG/2 ML VIAL. IVP PRN (16:00)
[2019-07-01] MEDS: MORPHINE SULFATE 4 MG/ML DISP.SYRIN. IV PRN ×3 (16:06→23:58)
[2019-07-01 16:32] LABS: CREATININE 1.6 mg/dL (0.7-1.3); GFR 61.3; POTASSIUM 4.7 mmol/L (3.5-5.1)
--- NOTE | 2019-07-01 17:42 | HP ---
ADMIT DATE: 07/01/2019 HISTORY OF PRESENT ILLNESS: The patient is a 33-year-old -[place] male patient who presented to the Emergency Room with reports of nausea, vomiting, associated with epigastric pain that has been going on for the last 3 days. He also had some diarrhea. He reported that he cannot keep anything down. Denies any known sick contact. The patient does report he has not taken his insulin. He reports also used cocaine 2 days ago. Denies any fever, denies travel outside of [place] and denies any known exposure to COVID-19. He was extensively investigated in the Emergency Room. His lab work showed leukocytosis with a white cell count 15,200. His blood gases showed a pH of 7.14 with anion gap of 30. His creatinine was also elevated at 1.8. However, his PT/INR and aPTT are normal. Urinalysis showed some proteinuria and glycosuria and a large amount of ketones, otherwise negative. Toxic screen was positive for cannabinoids and cocaine. The patient was admitted with diabetic ketoacidosis. His CT scan of the abdomen and pelvis also showed that he has long segment of colonic wall thickening consistent with acute colitis. Therefore, we started him on IV fluid and insulin drip as per protocol as well as IV Zosyn to cover the acute colitis. His appendix caliber is somewhat prominent; however, there were no other findings suggestive of acute appendicitis. PAST MEDICAL HISTORY: Significant for type 1 diabetes. Has been admitted before multiple times with diabetic ketoacidosis and acute kidney injury. PAST SURGICAL HISTORY: Unremarkable. ALLERGIES: He has no known drug allergies. FAMILY HISTORY: Noncontributory. SOCIAL HISTORY: He does smoke. He apparently does not drink alcohol; however, he continued to use marijuana and abuse cocaine. He is single, but stated that he has 4 children. REVIEW OF SYSTEMS: As per history of present illness. PHYSICAL EXAMINATION: GENERAL: On arrival to the Emergency Room, the patient was slightly tachypneic, tachycardic, but there is no pallor, jaundice, cyanosis or thyromegaly. No jugular venous distention or limb edema. VITAL SIGNS: His heart rate was 107, blood pressure was 148/81, temperature 97.5, respiratory rate 20, and oxygen saturation was 97%. HEAD, EYES, EARS, NOSE AND THROAT: Showed normocephalic, atraumatic. NECK: Supple. HEART: Showed normal first and second heart sounds. No gallop or murmur. CHEST: Clear to auscultation. No crepitation or rhonchi. ABDOMEN: Distended, soft. Tenderness mostly in the epigastric area. There is no guarding or rigidity. No organomegaly. All hernial orifice intact. Bowel sounds normal. NEUROLOGIC: He was alert, oriented x 3 with normal motor and sensory function. LABORATORY DATA: While in the Emergency Room, he has lab work done, which showed that his white cell count was 15,200, hemoglobin 15, hematocrit 45, MCV 96, and platelet count of 267,000 with normal manual differential. His chemistry showed serum sodium of 132, potassium 5, chloride 91, bicarbonate 10, anion gap of 31, BUN 30, creatinine 1.8, estimated GFR was 53 mL per minute. His glucose was 543, calcium was 9.3, magnesium was 2.3. Total bilirubin, AST, ALT, alkaline phosphatase were normal. His CK was 537. Total protein was 8.2, albumin was 3.7 and serum lipase was 58. His pH was 7.14, pCO2 of 35, pO2 of 101, bicarbonate 12 and oxygen saturation was 95% on room air. His prothrombin time 9.9, INR 1, aPTT was 21. Urinalysis showed the urine was yellow, hazy with a pH of 5.5, specific gravity 1.015. There was large amount of protein, large amount of glucose, large amount of ketones. There is small amount of blood, negative for nitrite and urine bilirubin, negative for leukocyte esterase, 3-5 rbc's, occasional wbc's, and no bacteria. His toxic screen was positive for cocaine and cannabinoids. ASSESSMENT AND PLAN: In summary, this is a 33-year-old -Fijian male patient known to have type 1 diabetes with recurrent admission for diabetic ketoacidosis. He also has cocaine and cannabinoid abuse, acute kidney injury. Plan is to continue with IV antibiotic. Continue with IV fluid and insulin drip as per protocol. I did start him also on morphine and Zofran. If he continues to have abdominal pain tomorrow, we might have to repeat CT scan to make sure he does not have any appendicitis. He also has acute colitis. We will also send stool for culture and sensitivity. DEMETRIUS BAIN MD DR: Alpa JOB#: [id number] / [id number]
[2019-07-01] MEDS: PIPERACILLIN/TAZOBACTAM 3.375 GM in IV NORMAL SALINE 50ML 50 ML IV SCH ×2 (18:20→23:55)
[2019-07-01] MEDS: POTASSIUM CL 40MEQ D5-0.45NACL 1,000 ML IV SCH (19:55)
[2019-07-02] VITALS (11 sets, daily range): BP systolic 131–177; BP diastolic 72–105
[2019-07-02] MEDS: POTASSIUM CL 40MEQ D5-0.45NACL 1,000 ML IV SCH ×2 (02:52→07:49)
[2019-07-02] MEDS: PIPERACILLIN/TAZOBACTAM 3.375 GM in IV NORMAL SALINE 50ML 50 ML IV SCH (06:00)
[2019-07-02 06:10] LABS: HEMATOCRIT 38.1 % (39.0-53.0); RED BLOOD COUNT 4.08 x10^6/uL (4.30-5.70); RED CELL DISTRIBUTION WIDTH 13.9 % (11.5-14.5); WHITE BLOOD COUNT 12.9 x10^3/uL (4.0-11.0)
[2019-07-02 06:20] LABS: ALBUMIN 2.9 g/dL (3.4-5.0); ALBUMIN/GLOBULIN RATIO 0.7 (1.0-1.7); CALCIUM 8.5 mg/dL (8.5-10.1); CREATININE 1.5 mg/dL (0.7-1.3); TOTAL BILIRUBIN 0.4 mg/dL (0.2-1.0); TOTAL PROTEIN 6.8 g/dL (6.4-8.2)
--- NOTE | 2019-07-02 06:41 | NUR ---
Pt remains on Insulin gtt per protocol. Pt also continues with IVFs per Emar. He required a couple doses of pain meds and nausea meds throughout the shift. Tolerating ice chips in between. Pt gap closed now. AM labs reviewed. Pt resting comfortably.
[2019-07-02] MEDS: INSULIN GLARGINE SYRINGE. SQ SCH ×3 (08:10→20:20)
[2019-07-02] MEDS ORDERED: DEXTROSE 50% 25 GM / 50ML DISP.SYRIN. IV PRN (08:15)
[2019-07-02] MEDS: ONDANSETRON PF 4 MG/2 ML VIAL. IVP PRN ×5 (08:20→21:57)
[2019-07-02] MEDS: MORPHINE SULFATE 4 MG/ML DISP.SYRIN. IV PRN ×3 (08:35→21:58)
--- NOTE | 2019-07-02 09:00 | NUR ---
Dr Story here this morning to see patient, orders to DC insulin gtt, IV Fluids and Antibiotics. States patient has gastroenteritis. Patient continues to have nausea and vomiting, abdominal pain but is relieved with PRN medication.
--- NOTE | 2019-07-02 09:34 | PN ---
DATE: 07/02/2019 ATTENDING PHYSICIAN: Dr. Sargent SUBJECTIVE: He has no further abdominal symptoms. No further diarrhea. No stool specimen. He is hungry and thirsty. OBJECTIVE FINDINGS: VITAL SIGNS: His blood pressure today is 138/78, pulse is between 90 and 100 and sinus. The patient is afebrile with a temperature of 97.0 degrees Fahrenheit, oxygen saturation 96% on room air. HEENT: Head is without trauma. Pupils are reactive. Sclerae nonicteric. Oropharynx clear. NECK: Supple. LUNGS: Otherwise clear. CARDIOVASCULAR: Showed regular heart tones. No obvious gallops. Peripheral pulses are palpable and full. ABDOMEN: Soft. Minimal guarding, no tenderness. No rebound tenderness. Bowel sounds are hypoactive. EXTREMITIES: Show no cyanosis or edema. NEUROLOGIC: Focally intact. PERTINENT LABORATORY STUDIES: This morning, his hemoglobin is 13.0 g/dL with white count of 12,900. Electrolytes are within normal range. Potassium is 4.0 mEq, carbon dioxide is 25 and the anion gap is down to 8. Nonfasting blood sugars had been in the mid 100 range. ASSESSMENT: A 33-year-old gentleman. 1. Type 1 diabetic with noncompliance of meds. 2. Diabetic ketoacidosis, corrected. 3. Abdominal pain due to probable self-limiting colitis, improving. 4. Ketoacidosis, resolved. 5. Dehydration, improved. PLAN: 1. We will restart his regular scheduled insulin along with Lantus dose. 2. Advance diet. 3. Discontinue insulin drip. 4. Discontinue IV fluids. 5. I think he has a self-limiting gastroenteritis. We can hold off his antibiotics. 6. Discharge planning. NITO MAE MD DR: WESLEY/moses JOB#: [id number] / [id number]
[2019-07-02] MEDS: INSULIN LISPRO 300 UNITS/3 ML VIAL. SQ SCH ×3 (10:09→17:00)
--- NOTE | 2019-07-02 14:32 | NUR ---
Patient being moved to room 115, stable at this time and downgraded to telemetry. Patient states he continues to have episodes of nausea and abdominal pain, Episodes of emesis throughout day and refuses to eat except ice chips. Emesis is green in color and has had around 300 out today. PRN Zofran and morphine given which has helped alleviate symptoms. Patient taken off insulin gtt this morning and started on sliding scale insulin and scheduled regimen. Monitoring blood sugars q 2-4 hours. Patient resting comfortably at this time with heating pad on stomach.
--- NOTE | 2019-07-02 18:20 | NUR ---
Patient resting comfortably, denies need for any pain medication and nausea has subsided. Will continue to monitor blood sugar and vitals.
--- NOTE | 2019-07-02 18:54 | NUR ---
Patient called nurse to room states he is having nausea and abdominal pain, along with episodes of emesis. Oncoming nurse notified at this time of patients request and current condition.
--- NOTE | 2019-07-02 19:51 | NUR ---
Pt continues to have n/v about 150cc emesis since arrival to shift. Pt pain is 10/10 and extremely restless in bed. Gave pt nausea and pain meds. Upon assessment of sepsis, he flagged positive and call was made to Dr. Story to tell him of findings. He stated that the colitis he has is viral and that is why he stopped the IV abx today. I discussed pt current BS reading of [address] Story and with pt not eating and having n/v does he still want me to give the entire 20 units of Lantus tonight and he said, "yes, kind of playing catch up at this point." He did say the best thing we can do is start him back on IVFs so I put in orders for that. Mentioned that the pt was afebrile but HR remains tachy. No other orders received.
[2019-07-02] MEDS: IV NORMAL SALINE 1,000ML 1,000 ML IV SCH (20:19)
[2019-07-03] VITALS (7 sets, daily range): BP systolic 148–206; BP diastolic 89–120
[2019-07-03] MEDS: MORPHINE SULFATE 4 MG/ML DISP.SYRIN. IV PRN ×5 (00:46→21:12)
[2019-07-03] MEDS: ONDANSETRON PF 4 MG/2 ML VIAL. IVP PRN ×6 (00:46→21:12)
[2019-07-03] MEDS: INSULIN LISPRO 300 UNITS/3 ML VIAL. SQ SCH ×5 (04:39→17:33)
[2019-07-03] MEDS: IV NORMAL SALINE 1,000ML 1,000 ML IV SCH ×2 (05:50→17:38)
--- NOTE | 2019-07-03 05:55 | NUR ---
Pt currently resting. Pt vomited total of around 300cc emesis during shift. Required regularly given prn pain and nausea meds throughout the night. Pt BP was elevated most at times of increased pain rating. Pt received lantus and schedule lispro during shift. Pt blood glucose reading in 200s each time. Pt continues to get maintenance IVFs. Pt has been afebrile. Remains ST on monitor.
--- NOTE | 2019-07-03 09:00 | NUR ---
Patient continues to not feel well, requesting zofran and morphine. States he cant eat and doesnt feel well. Dr MAE notified and states patient will plan to stay another day.
[2019-07-03] MEDS: INSULIN GLARGINE SYRINGE. SQ SCH ×2 (09:50→21:16)
--- NOTE | 2019-07-03 12:00 | NUR ---
Nurse spoke with Dr Story in regards to patient, patient continues to vomit clear bile and having abdominal pain. Patient has not had anything solid to eat for 2-3 days and only request water. Dr Story stated patient "has gastroenteritis and this will take awhile to get over"
--- NOTE | 2019-07-03 14:26 | PN ---
DATE: 07/03/2019 ATTENDING PHYSICIAN: Dr. Sargent. SUBJECTIVE: Alert. He is feeling better. Nausea and abdominal pain symptoms have improved. OBJECTIVE FINDINGS: VITAL SIGNS: He is afebrile. His blood pressure is 148/89, pulse is 100 and regular, oxygen saturation 98% on room air. HEENT: Head is without trauma. Pupils are reactive. Sclerae is nonicteric. Oropharynx is clear. NECK: Supple, no bruits identified. LUNGS: Otherwise clear. CARDIOVASCULAR: Showed regular heart tones. No gallops. ABDOMEN: Soft, scaphoid, nontender. Good bowel sounds. EXTREMITIES: Showed no cyanosis or edema. NEUROLOGIC: Focally intact. PERTINENT LABORATORY DATA: Reviewed. His chemistry panel, have corrected the acidosis. Nonfasting blood sugar 182 and 219 respectively. ASSESSMENT: 1. A 33-year-old gentleman with uncontrolled diabetes. 2. Type 1 diabetes. 3. Diabetic ketoacidosis, corrected. 4. Abdominal pain due to self-limiting colitis, improved. 5. Dehydration, rehydrated. PLAN: 1. Advance diet to solid foods. 2. Accu-Cheks q.i.d. 3. Discharge planning. NITO MAE MD DR: WESLEY/moses JOB#: [id number] / [id number]
--- NOTE | 2019-07-03 18:32 | NUR ---
Spoke with Dr. Story in regards to patients status, patient continues to vomit and states "i just want it to stop, dulce maria never hurt this bad, why wont it go away." Patients abdomen soft, tender to touch but states "pain is up in my chest area like its acid.." Nurse observed emesis today which patient had 300 out and emesis was clear to green in color. Patient blood pressure also elevated but this was taken during patients vomiting episode, will reassess once patient has stopped and resting. Dr Story stated patient can have a 1x order of GI Cocktail.
[2019-07-03] MEDS ORDERED: LIDO:MAALOX 1:1 20 ML SINGLE DOSE. PO ONE (18:45)
[2019-07-04] MEDS: ONDANSETRON PF 4 MG/2 ML VIAL. IVP PRN ×6 (00:51→22:30)
[2019-07-04] MEDS: MORPHINE SULFATE 4 MG/ML DISP.SYRIN. IV PRN ×6 (00:52→22:31)
[2019-07-04 01:00] VITALS: BP 160/79
[2019-07-04] MEDS: IV NORMAL SALINE 1,000ML 1,000 ML IV SCH (04:16)
[2019-07-04 05:40] VITALS: BP 164/98
[2019-07-04] MEDS: INSULIN LISPRO 300 UNITS/3 ML VIAL. SQ SCH ×5 (06:00→17:56)
--- NOTE | 2019-07-04 06:00 | NUR ---
1899-At change of shift, pt sitting on bedside with emesis bag in hand, with dry heaves. PO GI cocktail ordered to be given but held off until N/V under control and when pt can have next dose of PRN Zofran (around 2119). Pt is A&O x4, appears in discomfort, having upper abd pain (/). 2129- Pt was able to tolerate ice chips and a few sips of lemon/nooksack soda. GI cocktail given and was able to keep down. PRN Zofran and Morphine given, Pt now resting with eyes closed. Pt required PRN Morphine and Zofran throughout the night about every 3-4 hours. Pt did receive HS dose of Lantus for 107 blood sugar, recheck at 129 was 112. Pt still S.Tach on monitor when sleeping, ranging from 90-120's. Pt this AM still having nausea and abd pain.
--- NOTE | 2019-07-04 09:21 | PN ---
DATE: ATTENDING PHYSICIAN: Dr. Mae. Dictation Ends Here. NITO MAE MD DR: WESLEY/moses JOB#: [id number] / [id number]
--- NOTE | 2019-07-04 09:40 | PN ---
DATE: 07/04/2019 ATTENDING PHYSICIAN: Dr. Sargent. SUBJECTIVE: Still nauseated, small amount of vomiting. Unfortunately, he is not hungry. Sugars are much better controlled. He is very passive and lies in bed, moaning. OBJECTIVE: VITAL SIGNS: His blood pressure today is 160/98, pulse is 100 and regular, temperature 98.3 degrees Fahrenheit, and oxygen saturation 98% on room air. HEENT: Head is without trauma. Pupils are reactive. Sclerae nonicteric. Oropharynx clear. NECK: Supple, no bruits identified. LUNGS: Clear. CARDIOVASCULAR: Showed regular heart tones. No gallops. Peripheral pulses palpable. ABDOMEN: Soft, scaphoid, nontender. No organomegaly. No guarding or rebound tenderness. Bowel sounds are normoactive. EXTREMITIES: Showed no cyanosis or edema. NEUROLOGIC: Focally intact. Speech fluent. No deficits. PERTINENT LABORATORY DATA: Repeat chemistry panel was pending. Nonfasting blood sugars have been 107 and 112 respectively. ASSESSMENT: 1. A 33-year-old gentleman with uncontrolled diabetes. 2. Type 1 diabetes with noncompliance. 3. Diabetic ketoacidosis, corrected. 4. Abdominal pain due to probable self-limiting colitis, still having symptoms. 5. Dehydration. Rehydrated. PLAN: 1. Advance diet as tolerated. 2. Glucose control before meals and at bedtime. 3. Discharge planning. 4. Pain and nausea control. NITO MAE MD DR: WESLEY/moses JOB#: [id number] / [id number]
[2019-07-04 09:57] LABS: HEMATOCRIT 41.5 % (39.0-53.0); HEMOGLOBIN 14.1 g/dL (13.0-17.5); RED BLOOD COUNT 4.43 x10^6/uL (4.30-5.70); RED CELL DISTRIBUTION WIDTH 13.5 % (11.5-14.5); WHITE BLOOD COUNT 8.4 x10^3/uL (4.0-11.0)
[2019-07-04 10:13] LABS: ALBUMIN 2.8 g/dL (3.4-5.0); ALBUMIN/GLOBULIN RATIO 0.7 (1.0-1.7); CALCIUM 8.7 mg/dL (8.5-10.1); CREATININE 1.1 mg/dL (0.7-1.3); GFR 94.5; POTASSIUM 3.3 mmol/L (3.5-5.1); TOTAL BILIRUBIN 0.5 mg/dL (0.2-1.0); TOTAL PROTEIN 6.8 g/dL (6.4-8.2)
[2019-07-04] MEDS: INSULIN GLARGINE SYRINGE. SQ SCH ×2 (10:47→22:37)
[2019-07-04 12:04] VITALS: BP 160/96
[2019-07-04 15:00] VITALS: BP 174/98
[2019-07-04 19:15] VITALS: BP 178/96
[2019-07-04 22:35] VITALS: BP 159/89
[2019-07-05] MEDS: ONDANSETRON PF 4 MG/2 ML VIAL. IVP PRN ×3 (01:48→08:40)
[2019-07-05] MEDS: MORPHINE SULFATE 4 MG/ML DISP.SYRIN. IV PRN ×3 (01:49→08:40)
--- NOTE | 2019-07-05 05:30 | NUR ---
Pt was able to tolerate a few sips of ice water and 3-4 grapes during this shift. Pt still feels "miserable" and c/o upper abd pain 6-/. PRN Zofran and Morphine given. Pt required PRN Morphine and Zofran throughout the night about every 3-4 hours. Pt did receive HS dose of Lantus for 126 blood sugar, recheck at 0130 was 111 and 0530 check was 122. Pt still S.Tach on monitor when sleeping, ranging from 90-120's. Pt this AM still having nausea and abd pain.
[2019-07-05 05:40] VITALS: BP 155/91
[2019-07-05] MEDS: INSULIN LISPRO 300 UNITS/3 ML VIAL. SQ SCH ×2 (05:43→08:00)
[2019-07-05] MEDS: INSULIN GLARGINE SYRINGE. SQ SCH (08:52)
--- NOTE | 2019-07-05 10:27 | NUR ---
Patient blood sugar was 122 this morning. No insulin given. Pt did not eat breakfast d/t nausea. Pt still experiencing abdominal pain 08/14. Morphine and zofran administered. WCTM
--- NOTE | 2019-07-05 10:32 | NUR ---
Pt discharged home for self care. Pt given discharge, follow up and medication instructions. Pt verbal understanding of instructions received by this nurse. Pt IV discontinued, pressure dressing applied, no complications. Pt left unit with belongings via ambulation. Family member picked pt up at the main hospital entrance.
--- NOTE | 2019-07-05 12:49 | DS ---
DATE OF DISCHARGE: 07/05/2019 ATTENDING PHYSICIAN: Dr. Sargent. FINAL DISCHARGE DIAGNOSES: 1. Uncontrolled diabetes. 2. Type 1 diabetes with noncompliance. 3. Diabetic ketoacidosis, corrected. 4. Abdominal pain due to self-limiting colitis. 5. Dehydration, rehydrated. 6. Polysubstance abuse. HISTORY AND PHYSICAL: This 33-year-old gentleman, type 1 diabetic, does not follow up on sugars. He presented to the ED with abdominal pain, nausea, vomiting, elevated blood sugars and signs of diabetic ketoacidosis. PHYSICAL EXAMINATION: Please see the dictated note. PERTINENT LABORATORY AND X-RAY STUDIES: On admission, abdominal CT showed no evidence of obstruction. There is some distention of the urinary bladder. There is hepatic steatosis and there is mild evidence suggestive of nonspecific colitis. His hemoglobin was 15.4 g/dL with white count of 15,000 and repeated 3 days later was down to 8400. Chemistry panel showed a hemoglobin A1c of 11.3 in the past. Sodium 141, potassium 3.3, this was replaced. Creatinine 1.1 mg/dL. Anion gap was down to 9. Sodium bicarbonate was up to 27. Cholesterol was 261. Transaminases slightly elevated. Cardiac enzymes negative for myocardial necrosis. COURSE IN THE HOSPITAL: The patient was admitted. He was started on insulin drip, bringing the sugars down nicely and this was cut back to sliding scale insulin based on his diet. He still has symptoms of nausea, vomiting and was treated accordingly. He had a self-limiting gastroenteritis, which took a few days to get better. He was improved. By the fifth hospital day, sugars in the low 100s. He is ready for discharge. I wrote scripts for Percocet 10/325 one every 6 hours p.r.n. pain, Zofran 4 mg p.o. q. 6 hours p.r.n. pain. He is highly recommended to continue his q.i.d. regimen of Lantus at bedtime and 10 units of regular insulin before each meal. Strong encouragement to follow up with his PCP. Whether or not he will change his recreational drug use remains to be seen despite admonitions. Therefore, he is discharged from our hospital in stable condition with explicit drug and followup care. NITO MAE MD DR: WESLEY/moses JOB#: [id number] / [id number] DEMETRIUS Mcdowell MD
== END 2019-07-05 10:10 | disposition home or self-care (01) | DRG 682 ==
LOC: ER 10:22 → ICU 13:00 → 1 SOUTH 07-02 14:29
PROVIDERS: ADMIT Internal Medicine; ATTEND Internal Medicine
DX: N17.9 Acute kidney failure, unspecified (principal); E10.10 Type 1 diabetes mellitus with ketoacidosis without coma; K52.9 Noninfective gastroenteritis and colitis, unspecified; E10.22 Type 1 diabetes mellitus with diabetic chronic kidney disease; E86.0 Dehydration; F12.90 Cannabis use, unspecified, uncomplicated; F14.10 Cocaine abuse, uncomplicated; F17.200 Nicotine dependence, unspecified, uncomplicated; K76.0 Fatty (change of) liver, not elsewhere classified; N18.9 Chronic kidney disease, unspecified; N32.89 Other specified disorders of bladder; Z79.4 Long term (current) use of insulin; Z91.14 Patient's other noncompliance with medication regimen; Z91.19 Patient's noncompliance with other medical treatment and regimen
CPT/HCPCS: 36415; 36600; 74177; 80048; 80053; 80307; 81001; 82010; 82550; 82553; 82803; 82947; 83605; 83690; 83735; 84484; 85007; 85025; 85027; 85610; 85730; 87040; 93005; 96361; 96372; 96374; 96375; J1200; J1815; J2020; J2270; J2405; J2543; J2765; J3490; J7042; Q9967; 99291-25; J7030